=== PATIENT | male | born 1975 | race Caucasian/White ===

== ENCOUNTER 2018-03-15 21:53 | Inpatient (IN) | payer MEDICAID ==
[~2018-03-15] VITALS: Ht 167.6 cm; Wt 67.3 kg
[~2018-03-15 21:53] MED LIST: FURO40TA5 PO; LISI10TA59 PO; SPIR25TA PO
--- NOTE | 2018-03-15 22:40 | NUR ---
PT BBSELF FROM HOME C/C OF ON/OFF PRESSURE LIKE CP NON RADIATING X1 WEEK W/ +SOB, -N/V. STATES HE USES METH. SKIN WARM AND DRY. PT AAOX4. RR EVEN AND UNLABORED. PT PLACED ON NATIONAL SALES DIRECTOR AND POX. MD BEDSIDE FOR EVAL. PT SAFETY AND COMFORT MEASURES IN PLACE.
[2018-03-15] MEDS ORDERED: FUROSEMIDE 40 MG/4 ML VIAL IV ONE (23:00)
[2018-03-15] MEDS ORDERED: ENALAPRILAT INJ (1.25 MG/ML) 1.25 MG/ML VIAL IV PRN (23:00)
[2018-03-15] MEDS ORDERED: NITROGLYCERIN 0.4 MG/TAB BOTTLE SL ONE (23:00)
[2018-03-15] MEDS ORDERED: ASPIRIN 325 MG TABLET PO ONE (23:00)
[2018-03-15 23:02] LABS: BASOPHILS # (AUTO) 0.2 /CMM (0.0-0.2); BASOPHILS % (AUTO) 2.6 % (0.0-2.0); EOSINOPHILS % (AUTO) 2.4 % (0.0-6.0); HEMATOCRIT 36 % (39-51); HEMOGLOBIN 11.7 g/dL (13.5-17.5); LYMPHOCYTES # (AUTO) 2.3 /CMM (0.8-4.8); LYMPHOCYTES % (AUTO) 31.3 % (20.0-44.0); MEAN CORPUSCULAR HGB CONC 32 g/dl (31.0-36.0); MEAN CORPUSCULAR VOLUME 78 fL (80-96); MONOCYTES # (AUTO) 0.3 /CMM (0.1-1.30); MONOCYTES % (AUTO) 4.8 % (2.0-12.0); NEUTROPHILS # (AUTO) 4.3 /CMM (1.8-8.9); NEUTROPHILS % (AUTO) 58.9 % (43.0-81.0); PLATELET COUNT (AUTO) 328 /CMM (150-450); RED BLOOD CELL COUNT(AUTO) 4.62 MIL/uL (4.5-6.0); WHITE BLOOD COUNT (AUTO) 7.2 K/uL (4.3-11.0)
[2018-03-15] MEDS ORDERED: FUROSEMIDE 20 MG/2 ML VIAL ONE (23:04)
[2018-03-15] MEDS ORDERED: ENALAPRILAT DIHYD. (2.5MG/ML) 1.25 MG/ML VIAL IV ONE (23:04)
[2018-03-15] MEDS ORDERED: ASPIRIN 325 MG TABLET ONE (23:04)
[2018-03-15] MEDS ORDERED: FUROSEMIDE 40 MG/4 ML VIAL ONE (23:04)
[2018-03-15] MEDS ORDERED: NITROGLYCERIN 0.4 MG/TAB BOTTLE ONE (23:04)
[2018-03-15 23:12] LABS: CALCIUM, SERUM 8.6 mg/dL (8.5-10.1); CREATININE 1.3 mg/dL (0.6-1.3); POTASSIUM 4.1 mmol/L (3.5-5.1)
--- NOTE | 2018-03-15 23:19 | NUR ---
PT RECEIVED 3 DOSES OF SUBLINGUAL NITRO 0.4 PER MD'S ORDERS. PT STATES PAIN DOWN FROM 7/10 TO 4/10.
[2018-03-15 23:27] LABS: ALBUMIN 3.5 g/dL (3.4-5.0); BILIRUBIN,DIRECT 0.3 mg/dL (0.0-0.2); BILIRUBIN,TOTAL 1.6 mg/dL (0.2-1.0); TOTAL PROTEIN, SERUM 7.5 g/dL (6.4-8.2)
[2018-03-15 23:30] VITALS: BP 128/80
--- NOTE | 2018-03-15 23:32 | NUR ---
CALLED NURSE TARIQP FOR TELE BED. [phone]
--- NOTE | 2018-03-15 23:35 | NUR ---
TO RESTROOM TO GIVE URINE SAMPLE
--- NOTE | 2018-03-15 23:39 | NUR ---
REPORT GIVEN TO OCEANOGRAPHIC METEOROLOGISTFERN LLOYD FOR ELLYN
[2018-03-16 00:30] VITALS: BP 128/80
[2018-03-16] MEDS ORDERED: ACETAMINOPHEN 325 MG TABLET PO PRN (02:30)
[2018-03-16] MEDS ORDERED: ZOLPIDEM TARTRATE 5 MG TABLET PO PRN (02:30)
[2018-03-16] MEDS ORDERED: MAGNESIUM HYDROXIDE 30 ML UDC PO PRN (02:30)
[2018-03-16] MEDS ORDERED: Z GUARD REMEDY 2 OZ OINT TP PRN (02:30)
[2018-03-16] MEDS ORDERED: ONDANSETRON HCL/PF 4 MG/2 ML VIAL IVP PRN (02:30)
[2018-03-16] MEDS ORDERED: HYDROCODONE/APAP 5/325MG 1 EACH TABLET PO PRN (02:30)
[2018-03-16] MEDS ORDERED: MAG HYDROX/AL HYDROX/SIMETH 30 ML UDC PO PRN (02:30)
--- NOTE | 2018-03-16 06:23 | NUR ---
ENDING NOTES: NPO SINCE MIDNIGHT, UNTIL SEEN BY MD WRAY THIS AM. NO CHESTPAIN SINCE LEAVING THE ER NO SOB. SATSABOVE 96% ROOM AIR, BLOOD PRESSURE STABLE VOIDED 1700 ML SINCE MIDNIGHT AFTER BEING GIVEN LASIX IV IN THE ER. LUNGS VIA AUSCULTATION CLEAR. HE IS COOPERATIVE AND PLEASENT. SLEPT EASILY THRU THE NIGHT.
--- NOTE | 2018-03-16 07:32 | NUR ---
PT AWAKE A/O X4 , COOPERATIVE .NPO SINCE MIDNIGHT. NO CHESTPAIN REPORTED AT THIS TIME , PT ON ROOM AIR SAT ABOVE 95%. IV LINE INTACT AND PATENT. WILL CONTINUE TO MONITOR
[2018-03-16 07:47] LABS: BASOPHILS # (AUTO) 0.1 /CMM (0.0-0.2); BASOPHILS % (AUTO) 0.9 % (0.0-2.0); EOSINOPHILS % (AUTO) 3.6 % (0.0-6.0); HEMATOCRIT 38 % (39-51); HEMOGLOBIN 12.4 g/dL (13.5-17.5); LYMPHOCYTES # (AUTO) 1.8 /CMM (0.8-4.8); LYMPHOCYTES % (AUTO) 23.9 % (20.0-44.0); MEAN CORPUSCULAR HGB CONC 32 g/dl (31.0-36.0); MEAN CORPUSCULAR VOLUME 77 fL (80-96); MONOCYTES # (AUTO) 0.4 /CMM (0.1-1.30); MONOCYTES % (AUTO) 5.3 % (2.0-12.0); NEUTROPHILS % (AUTO) 66.3 % (43.0-81.0); PLATELET COUNT (AUTO) 353 /CMM (150-450); RED BLOOD CELL COUNT(AUTO) 4.98 MIL/uL (4.5-6.0); WHITE BLOOD COUNT (AUTO) 7.5 K/uL (4.3-11.0)
[2018-03-16 08:00] VITALS: BP 136/86
[2018-03-16 08:01] LABS: CREATININE 1.4 mg/dL (0.6-1.3); PHOSPHORUS 4.4 mg/dL (2.5-4.9); POTASSIUM 4.2 mmol/L (3.5-5.1)
[2018-03-16] MEDS ORDERED: SPIRONOLACTONE 25 MG TABLET PO SCH (09:00)
[2018-03-16] MEDS ORDERED: FUROSEMIDE 40 MG TABLET PO SCH (09:00)
[2018-03-16] MEDS ORDERED: LISINOPRIL (10MG) 10 MG TABLET PO SCH (09:00)
[2018-03-16 09:06] VITALS: BP 136/86
--- NOTE | 2018-03-16 10:20 | NUR ---
Social service consult requested by manager of case Flor Patrica for homelessness. Pt. is a 42 year old male who was admitted to [facility] for NSTEMI. SW met with pt. bedside. Pt. is alert and oriented x 4. Pt. was cooperative with SW during the assessment. SW is familiar with pt. from a previous admission in December 2017. Pt. states he is not homeless and lives with a friend. Pt. was unable to provide address but stated his friend with pick him up or he will take Uber and request the address from his friend. Pt. states he has not used any drugs since his last admission on 12/20/17. Pt.denies any alcohol use at this time. Pt. states he has a lot of anxiety but is not taking any medication for it. ROXY encouraged pt. to speak to his doctor regarding his anxiety. ROXY also informed pt. she will notify his FERN Hernandez as well. Pt. is currently NPO. Pt. has family who are involved in his life. No other social service needs are requested at this time. SW is available, if needed. ROXY notified pt's FERN Hernandez regarding pt's anxiety.
[2018-03-16] MEDS ORDERED: ASPIRIN 81 MG TAB.CHEW PO SCH (10:30)
[2018-03-16] MEDS ORDERED: LEVALBUTEROL HCL NEB 1.25 MG/0.5 ML VIAL.NEB IH SCH (10:30)
[2018-03-16] MEDS ORDERED: ASPI-1152 PO (13:23)
--- NOTE | 2018-03-16 13:25 | NUR ---
PT CLEARED FOR D/C BY . PT D/C TO HOME IN STABLE CONDITION. IV LINE REMOVED, ID WRIST BAND REMOVED, D/C EDUCATION AND INSTRUCTIONS PROVIDED. PT VERBALIZED UNDERSTANDING. NO SKIN ISSUES. ALL BELONGINGS WITH THE PATIENT AND LIST IS SIGHED.
== END 2018-03-16 13:20 | disposition home or self-care (01) | DRG 194 ==
LOC: ER 21:56 → TELE 23:32 → MED 03-16 10:47
PROVIDERS: ADMIT Nurse Practitioner Acute Care
DX: I11.0 Hypertensive heart disease with heart failure (principal); I21.A1 Myocardial infarction type 2; N17.0 Acute kidney failure with tubular necrosis; I42.7 Cardiomyopathy due to drug and external agent; I50.21 Acute systolic (congestive) heart failure; I25.2 Old myocardial infarction; D63.8 Anemia in other chronic diseases classified elsewhere; F17.210 Nicotine dependence, cigarettes, uncomplicated; J44.9 Chronic obstructive pulmonary disease, unspecified; E78.5 Hyperlipidemia, unspecified; R74.0 Nonspecific elevation of levels of transaminase and lactic acid dehydrogenase [LDH]; F40.240 Claustrophobia; F15.988 Other stimulant use, unspecified with other stimulant-induced disorder
CPT/HCPCS: 36415; 71045-TC; 80048-TC; 80076-TC; 83690-TC; 83735-TC; 83880; 84100-TC; 84484-TC; 85025-TC; 87081-TC; G0378; J1940; J3490

== ENCOUNTER 2018-03-27 19:07 | Inpatient (IN) | payer MEDICAID ==
[2018-03-27] VITALS (7 sets, daily range): BP systolic 136–166; BP diastolic 87–109
[~2018-03-27] VITALS: Ht 172.7 cm; Wt 69.4 kg
[~2018-03-27 19:07] MED LIST changes: +ASPI-1152 PO
[2018-03-27] MEDS ORDERED: Magnesium 1GM/D5W 100ML PREMIX 200 ML IV ONE (19:31)
--- NOTE | 2018-03-27 19:31 | NUR ---
BIBSELF C/O SOB X 2 DAYS, PATIENT STATES HE FEELS A LOT OF PRESSURE WHEN LAYING DOWN. HX OF CHF. PT NOTED TO BE TACHYPNIC, WITH DYSPNEA ON INSPIRATION. RR 26-30. STATES +CP. PT IS AAOX4. PT PLACED ON APPEALS SPECIALIST AND POX. BEDSIDE FOR EVAL. RT PAGED. WILL CONTINUE TO MONITOR PT SAFETY AND COMFORT.
[2018-03-27] MEDS ORDERED: Magnesium 1GM/D5W 100ML PREMIX 100 ML IV ONE (19:38)
[2018-03-27] MEDS ORDERED: methylPREDNISolone SOD SUCC 125 MG/2ML VIAL ONE (19:38)
[2018-03-27] MEDS ORDERED: NTG 50 MG/D5W250 ML BOTTL 250 ML IV ONE (19:44)
[2018-03-27 19:48] LABS: BASOPHILS # (AUTO) 0.1 /CMM (0.0-0.2); BASOPHILS % (AUTO) 1.4 % (0.0-2.0); HEMATOCRIT 36 % (39-51); HEMOGLOBIN 11.6 g/dL (13.5-17.5); LYMPHOCYTES # (AUTO) 1.5 /CMM (0.8-4.8); MEAN CORPUSCULAR HGB CONC 32 g/dl (31.0-36.0); MEAN CORPUSCULAR VOLUME 78 fL (80-96); MONOCYTES # (AUTO) 0.4 /CMM (0.1-1.30); MONOCYTES % (AUTO) 5.4 % (2.0-12.0); NEUTROPHILS # (AUTO) 5.8 /CMM (1.8-8.9); NEUTROPHILS % (AUTO) 73.2 % (43.0-81.0); PLATELET COUNT (AUTO) 336 /CMM (150-450); RED BLOOD CELL COUNT(AUTO) 4.59 MIL/uL (4.5-6.0)
[2018-03-27 19:51] LABS: ABG BASE EXCESS -1.1 mmol/L; ABG OXYGEN SATURATION 95.5 % (92.0-98.5); ABG PCO2 28.2 mmHg (35.0-45.0); ABG PH 7.493 (7.350-7.450); ABG PO2 82.4 mmHg (75.0-100.0); AaDO2 33.6 mmHg; COHb 1.6 % (0.5-1.5); MetHb 0.3 % (0.0-1.5); O2Hb 93.7 % (94.0-97.0); SITE, ABG Right Radial; VENT MODE, BG ROOM AIR
[2018-03-27 19:55] LABS: CALCIUM, SERUM 8.5 mg/dL (8.5-10.1); CREATININE 1.3 mg/dL (0.6-1.3); POTASSIUM 4.5 mmol/L (3.5-5.1)
--- NOTE | 2018-03-27 19:56 | NUR ---
RT BEDSIDE FOR ABD AND PLACING PT ON BIPAP
[2018-03-27] MEDS ORDERED: IPRATROPIUM NEB FS 0.5 MG/2.5 ML AMPUL.NEB ONE (19:57)
[2018-03-27] MEDS ORDERED: ALBUTEROL FS 2.5 MG/3 ML VIAL.NEB ONE (19:57)
[2018-03-27] MEDS ORDERED: NTG 50 MG/D5W250 ML BOTTL 50 MG/250 ML BTL IV ONE (20:00)
[2018-03-27] MEDS ORDERED: ALBUTEROL FS 2.5 MG/3 ML VIAL.NEB CONTNEB ONE (20:00)
[2018-03-27] MEDS ORDERED: methylPREDNISolone SOD SUCC 125 MG/2ML VIAL IV ONE (20:00)
[2018-03-27] MEDS ORDERED: IPRATROPIUM NEB FS 0.5 MG/2.5 ML AMPUL.NEB NEB ONE (20:00)
[2018-03-27 20:07] LABS: ALBUMIN 3.2 g/dL (3.4-5.0); BILIRUBIN,DIRECT 0.5 mg/dL (0.0-0.2); BILIRUBIN,TOTAL 2.5 mg/dL (0.2-1.0); TOTAL PROTEIN, SERUM 7.1 g/dL (6.4-8.2)
--- NOTE | 2018-03-27 21:07 | NUR ---
REPORT GIVEN TO PAUL SHIRLEY FOR CONTINUATION OF CARE.
[2018-03-27] MEDS ORDERED: MAGNESIUM HYDROXIDE 30 ML UDC PO PRN (21:30)
[2018-03-27] MEDS ORDERED: ONDANSETRON HCL/PF 4 MG/2 ML VIAL IVP PRN (21:30)
[2018-03-27] MEDS ORDERED: MAG HYDROX/AL HYDROX/SIMETH 30 ML UDC PO PRN (21:30)
[2018-03-27] MEDS ORDERED: HYDROCODONE/APAP 5/325MG 1 EACH TABLET PO PRN (21:30)
[2018-03-27] MEDS ORDERED: MORPHINE SULFATE INJ 2 MG/ML DISP.SYRIN IV PRN (21:30)
[2018-03-27] MEDS ORDERED: NTG 50 MG/D5W250 ML BOTTL 250 ML IV PRN (21:30)
[2018-03-27] MEDS ORDERED: ACETAMINOPHEN 325 MG TABLET PO PRN (21:30)
[2018-03-27] MEDS ORDERED: ALBUTEROL FS 2.5 MG/0.5 ML VIAL.NEB NEB PRN (21:30)
[2018-03-27] MEDS ORDERED: ZOLPIDEM TARTRATE 5 MG TABLET PO PRN (21:30)
[2018-03-27] MEDS ORDERED: IPRATROPIUM NEB FS 0.5 MG/2.5 ML AMPUL.NEB NEB PRN (21:30)
[2018-03-27] MEDS ORDERED: IOHEXOL-350 100 ML VIAL IV ONE (21:37)
[2018-03-27] MEDS ORDERED: IV NS 0.9% 250 ML IV ONE (21:38)
[2018-03-27] MEDS ORDERED: CT SWABBABLE VALVE TRANS SET 1 EA INFUS.SET MC ONE (21:38)
[2018-03-27] MEDS: FUROSEMIDE 40 MG/4 ML VIAL IV SCH (22:10)
[2018-03-27] MEDS: ENOXAPARIN SODIUM 40 MG/0.4 ML DISP.SYRIN SQ SCH (22:20)
--- NOTE | 2018-03-27 22:22 | NUR ---
CASSEROLE PREPARER. ADMISSION. PT BEING ADMITTED FROM ER TO ICU RESPIRATORY FAILURE, CHF EXACERBATION. PT AWAKE, ALERT, FOLLOW COMMANDS. ASSISTANT GROCERY STORE MANAGER SHOWING S TACH. IV LTA C 20G. NITRO DRIP 80MCG, HOB ELEVATED. C PAP 5, FIO2 30%. AFEBRILE. WILL CONTINUE TO MONITOR VITALS.
[2018-03-27] MEDS ORDERED: Magnesium 1GM/D5W 100ML PREMIX 100 ML IV SCH (22:30)
[2018-03-28] VITALS (39 sets, daily range): BP systolic 109–162; BP diastolic 68–112
--- NOTE | 2018-03-28 03:34 | NUR ---
AIR BAG CURER. C PAP PT REFUSED. AT 0
[2018-03-28 04:35] LABS: APPEARANCE,URINE CLEAR (CLEAR); BILIRUBIN,URINE NEGATIVE (NEGATIVE); BLOOD, URINE NEGATIVE Ery/uL (NEGATIVE); COLOR,URINE YELLOW (YELLOW); KETONES,URINE NEGATIVE (NEGATIVE); LEUKOCYTE ESTERASE ,URINE NEGATIVE (NEGATIVE); NITRITE, URINE NEGATIVE (NEGATIVE); PROTEIN,URINE NEGATIVE (NEGATIVE); UGLUCOSE NEGATIVE (NEGATIVE); UROBILINOGEN,URINE 0.2 EU/dL (0.2)
--- NOTE | 2018-03-28 04:35 | NUR ---
BURLAPPER. PT REFUSED 0400 LAB BLOOD DRAW. I EXPLAIN NEED OF BLOOD DRAW HE UNDERSTAND. PT AGREED AT 0800.
--- NOTE | 2018-03-28 07:11 | NUR ---
INFORMATICS DEVELOPER. PT REFUSED CPAP. OXYGEN MASK 5L , SAT 98%.
[2018-03-28 07:19] LABS: BASOPHILS % (AUTO) 0.2 % (0.0-2.0); HEMATOCRIT 36 % (39-51); HEMOGLOBIN 11.4 g/dL (13.5-17.5); LYMPHOCYTES # (AUTO) 0.6 /CMM (0.8-4.8); LYMPHOCYTES % (AUTO) 7.5 % (20.0-44.0); MEAN CORPUSCULAR HGB CONC 32 g/dl (31.0-36.0); MEAN CORPUSCULAR VOLUME 77 fL (80-96); MONOCYTES # (AUTO) 0.2 /CMM (0.1-1.30); MONOCYTES % (AUTO) 2.5 % (2.0-12.0); NEUTROPHILS # (AUTO) 7.2 /CMM (1.8-8.9); NEUTROPHILS % (AUTO) 89.8 % (43.0-81.0); PLATELET COUNT (AUTO) 330 /CMM (150-450); RED BLOOD CELL COUNT(AUTO) 4.62 MIL/uL (4.5-6.0); WHITE BLOOD COUNT (AUTO) 8.1 K/uL (4.3-11.0)
[2018-03-28 07:39] LABS: ALBUMIN 3.3 g/dL (3.4-5.0); BILIRUBIN,TOTAL 2.8 mg/dL (0.2-1.0); CALCIUM, SERUM 8.6 mg/dL (8.5-10.1); CREATININE 1.2 mg/dL (0.6-1.3); MAGNESIUM 2.3 mg/dL (1.8-2.4); PHOSPHORUS 4.3 mg/dL (2.5-4.9); POTASSIUM 4.1 mmol/L (3.5-5.1); TOTAL PROTEIN, SERUM 7.3 g/dL (6.4-8.2)
[2018-03-28] MEDS: PANTOPRAZOLE 40 MG VIAL IV SCH (07:55)
--- NOTE | 2018-03-28 08:00 | NUR ---
VOLLEYBALL PLAYER: pt.is awake, Ox2, ST 100-110, on Nitro gtt, SBP 140-150, continue titrate, refused for CPAP, on SM 6L, O2sat. over 94%, is in room, updated with all above
--- NOTE | 2018-03-28 08:28 | NUR ---
CPC: pt.removed BP cuffx2, got explanation re POC, monitoring need d/t Nitro gtt
--- NOTE | 2018-03-28 08:50 | NUR ---
RUBBER TIRE CURER: pt.refused to draw blood for labs, ABG
[2018-03-28] MEDS: methylPREDNISolone SOD SUCC 40 MG/ML VIAL IV SCH ×3 (08:55→17:22)
[2018-03-28] MEDS: FUROSEMIDE 40 MG/4 ML VIAL IV SCH ×2 (08:55→17:22)
[2018-03-28] MEDS: ASPIRIN 81 MG TAB.CHEW PO SCH (08:55)
[2018-03-28] MEDS: LISINOPRIL (10MG) 10 MG TABLET PO SCH (08:55)
[2018-03-28] MEDS ORDERED: ASPIRIN 325 MG TABLET PO SCH (09:00)
--- NOTE | 2018-03-28 09:20 | NUR ---
DENTAL EQUIPMENT INSTALLER AND SERVICER: pt.is more cooperative now, got Miriam d/t headache (08/26), ST 100-105, SBP is around 130-140 now, ordered: stop Nitro gtt, start Nitro patch, O2sat. over 95%, no SOB, no acute c/o now, pt.is asking food/will s/w , urinated x2, notified re: don't leave bed without help
--- NOTE | 2018-03-28 10:15 | NUR ---
TOUR GUIDE: notified pt. re I/O restriction, O2sat. 98-100%, placed pt. on n/c 4L, is in room, got report: pt.current condition, CPAP/ABG refuses, Nitro gtt off, VS, I/O, labs, troponin, history, see new orders
[2018-03-28] MEDS: NITROGLYCERIN 30 GM TUBE TP SCH ×2 (10:28→20:58)
--- NOTE | 2018-03-28 11:14 | NUR ---
MORTGAGE SERVICING SPECIALIST: is in room, updated with all above, said: start cardiac diet, ok to transfer to Tele
--- NOTE | 2018-03-28 11:56 | NUR ---
PT REFUSED ABG, BENEFITS AND CONTRAINDICATIONS EXPLAINED. FERN NAVA. WILL CONT TO MONITOR PT Addendum: 03/28/18 at 1157 by HUGO MEADE RT Amended: Links added.
[2018-03-28] MEDS ORDERED: HYDROMORPHONE INJ 0.5 MG/0.5 ML SYRINGE IV PRN (12:30)
--- NOTE | 2018-03-28 14:44 | NUR ---
TURF FARMER: pt.is rest, no any pain now, sleeps well, ST 100-106, SBP over 100 below 140, O2sat. over 97% on 2L n/c, RR WNL
--- NOTE | 2018-03-28 16:00 | NUR ---
PRODUCTION CONTROL ANALYST: pt.is transferred to Tele after full report for FERN Tipton
--- NOTE | 2018-03-28 16:00 | NUR ---
DRIED FRUIT WASHER OPENING NOTES RECEIVED PATIENT IN STABLE CONDITION. IN NO APPARENT DISTRESS. PLACED PATIENT ON ELECTRICAL ASSISTANT. BELONGINGS WERE CHECKED. CALL LIGHT IS WITHIN REACH. IV LINE IS INTACT AND PATENT. BEDSIDE RAILS ARE UPX2. BED IS LOCKED AND LOWERED. WILL CONTINUE TO MONITOR PATIENT.
--- NOTE | 2018-03-28 18:23 | NUR ---
SOYBEAN GROWER CLOSING NOTES PATIENT RESTING IN STABLE CONDITION. IN NO APPARENT DISTRESS. BEDSIDE RAILS ARE UPX2. BED IS LOCKED AND LOWERED. CALL LIGHT IS WITHIN REACH. IV LINE IS INTACT AND PATENT. WILL ENDORSE CARE TO NIGHT [facility] NURSE FOR ELLYN.
--- NOTE | 2018-03-28 19:30 | NUR ---
DIESEL ENGINE MECHANIC APPRENTICE NOTES RECEIVED ON BED A/O X4,SINHALA,ABLE TO SPEAK CROATIAN.WITH SALINE LOCK RIGHT AC INTACT AND PATENT.NO SOB,O2 IN USED ON AND OFF TO KEEP O2 SAT ABOVE 90%.CALL LIGHT IN REACH,NEEDS ANTICIPATED.
--- NOTE | 2018-03-28 19:45 | NUR ---
VOCATIONAL REHABILITATION ADMINISTRATOR NOTES SR WITH INVERTED T WAVE-107 ON TELE MONITOR.
--- NOTE | 2018-03-28 20:15 | NUR ---
COMPUTER SOFTWARE ENGINEER NOTES C/O INSOMNIA,AMBIEN 5MG PO GIVEN PER PATIENT REQUEST.
[2018-03-28] MEDS: ENOXAPARIN SODIUM 40 MG/0.4 ML DISP.SYRIN SQ SCH (20:58)
[2018-03-29] VITALS: BP 112/64
[2018-03-29 00:04] VITALS: BP 112/64
[2018-03-29 04:00] VITALS: BP_SYST 105; BP_SYST 127; BP_DIAS 69; BP_DIAS 87
--- NOTE | 2018-03-29 06:02 | NUR ---
DICE DEALER NOTES NO SIGNIFICANT CHANGE IN STATUS.NO SOB,SLEPT WELL WITH AMBIEN,SALINE LOCK REMAINS PATENT ON RIGHT AC.CALL LIGHT IN REACH,NEEDS ATTENDED.WILL ENDORSE TO DAY NURSE FOR ELLYN.
[2018-03-29 08:00] VITALS: BP 112/79
[2018-03-29] MEDS: PANTOPRAZOLE 40 MG VIAL IV SCH (08:24)
[2018-03-29] MEDS: FUROSEMIDE 40 MG/4 ML VIAL IV SCH (08:24)
[2018-03-29] MEDS: methylPREDNISolone SOD SUCC 40 MG/ML VIAL IV SCH (08:24)
[2018-03-29] MEDS: ASPIRIN 81 MG TAB.CHEW PO SCH (08:25)
[2018-03-29] MEDS: LISINOPRIL (10MG) 10 MG TABLET PO SCH (08:25)
[2018-03-29] MEDS: NITROGLYCERIN 30 GM TUBE TP SCH ×2 (08:26→08:37)
[2018-03-29 08:37] VITALS: BP 112/79
--- NOTE | 2018-03-29 08:38 | NUR ---
RN NOTE PT REFUSED NITRO OINTMENT THIS AM STATING "IT GIVES ME TERRIBLE HEADACHE". WILL NOTIFY .
[2018-03-29] MEDS ORDERED: POTASSIUM CHLORIDE 20 MEQ TAB.PRT.SR PO SCH (09:00)
[2018-03-29] MEDS ORDERED: FUROSEMIDE 40 MG TABLET PO SCH (09:00)
--- NOTE | 2018-03-29 09:35 | NUR ---
RN NOTE PT IS AGITATED, PULLED OUT HIS IV SITE AND SUPERVISOR OF WAY, DRESSED UP IN HIS CLOTHES AND PACING IN THE CAPUTO WAY. WANTS TO LEAVE THE HOSPITAL. SIGNED AMA PAPER AND LEFT. NOTIFIED. Addendum: 03/29/18 at 1009 by LEONEL BAEZA RN RISK EXPLAINED, AND ACKNOWLEDGED, PT STILL WANTS TO GO HOME. PT REFUSED FURTHER TEACHINGS.
== END 2018-03-29 09:30 | disposition left against medical advice (07) | DRG 190 ==
LOC: ER 19:08 → ICU 20:59 → TELE 03-28 16:00 → MED 03-29 09:27
PROVIDERS: ADMIT Nurse Practitioner Acute Care
PROC: 5A09357 Assistance with Respiratory Ventilation, Less than 24 Consecutive Hours, Continuous Positive Airway Pressure (ICD-10-PCS; principal; 2018-03-27)
DX: I21.4 Non-ST elevation (NSTEMI) myocardial infarction (principal); J96.01 Acute respiratory failure with hypoxia; J96.02 Acute respiratory failure with hypercapnia; I50.23 Acute on chronic systolic (congestive) heart failure; E46 Unspecified protein-calorie malnutrition; I42.0 Dilated cardiomyopathy; E88.09 Other disorders of plasma-protein metabolism, not elsewhere classified; I11.0 Hypertensive heart disease with heart failure; N17.0 Acute kidney failure with tubular necrosis; D50.9 Iron deficiency anemia, unspecified; F17.210 Nicotine dependence, cigarettes, uncomplicated; E78.5 Hyperlipidemia, unspecified; D63.8 Anemia in other chronic diseases classified elsewhere; I16.1 Hypertensive emergency; F41.9 Anxiety disorder, unspecified; I25.2 Old myocardial infarction; F40.240 Claustrophobia; Z68.23 Body mass index [BMI] 23.0-23.9, adult; Z91.19 Patient's noncompliance with other medical treatment and regimen; E80.6 Other disorders of bilirubin metabolism; F15.10 Other stimulant abuse, uncomplicated; J44.9 Chronic obstructive pulmonary disease, unspecified
CPT/HCPCS: 36415; 36600; 71045-TC; 80048-TC; 80053-TC; 80061-TC; 80076-TC; 80305; 81000-TC; 82803-TC; 83735-TC; 83880; 84100-TC; 84484-TC; 85025-TC; 85378-TC; 87081-TC; 87400; 93307-TC; 94799-TC; C9113; G0378; J1650; J1940; J2920; J2930; J3475; J3490; J7050; Q9967

== ENCOUNTER 2018-04-05 | Inpatient (IN) | payer MEDICAID ==
[~2018-04-05] VITALS: Ht 170.2 cm; Wt 69.4 kg
[2018-04-05 00:29] LABS: BASOPHILS # (AUTO) 0.1 /CMM (0.0-0.2); BASOPHILS % (AUTO) 1.4 % (0.0-2.0); EOSINOPHILS % (AUTO) 2.4 % (0.0-6.0); HEMATOCRIT 34 % (39-51); LYMPHOCYTES # (AUTO) 1.8 /CMM (0.8-4.8); LYMPHOCYTES % (AUTO) 21.3 % (20.0-44.0); MEAN CORPUSCULAR HGB CONC 32 g/dl (31.0-36.0); MEAN CORPUSCULAR VOLUME 78 fL (80-96); MONOCYTES # (AUTO) 0.7 /CMM (0.1-1.30); MONOCYTES % (AUTO) 8.1 % (2.0-12.0); NEUTROPHILS # (AUTO) 5.6 /CMM (1.8-8.9); NEUTROPHILS % (AUTO) 66.8 % (43.0-81.0); PLATELET COUNT (AUTO) 389 /CMM (150-450); RED BLOOD CELL COUNT(AUTO) 4.42 MIL/uL (4.5-6.0); WHITE BLOOD COUNT (AUTO) 8.4 K/uL (4.3-11.0)
--- NOTE | 2018-04-05 00:29 | NUR ---
PT AOX4. C/O "SOB, H/A, FEELS LIKE ELEPHANT ON MY CHEST",-CP, -N/V, -DIZZINESS, VS STABLE, 100% R/A, FEELS LIKE HEAD ABOUT TO EXPLODE, PLACED ON ER BED 3 SEEN AND EVAL DONE DR GALAN, AWAITING ORDERS.
--- NOTE | 2018-04-05 00:30 | NUR ---
RT CALLED FOR NEB TX.
[2018-04-05] MEDS ORDERED: ALBUTEROL FS 2.5 MG/3 ML VIAL.NEB ONE (00:37)
[2018-04-05 00:40] LABS: CALCIUM, SERUM 8.6 mg/dL (8.5-10.1); CREATININE 1.2 mg/dL (0.6-1.3); POTASSIUM 5.1 mmol/L (3.5-5.1)
[2018-04-05] MEDS ORDERED: methylPREDNISolone SOD SUCC 125 MG/2ML VIAL IV ONE (01:00)
[2018-04-05] MEDS ORDERED: IPRATROPIUM NEB FS 0.5 MG/2.5 ML AMPUL.NEB NEB ONE (01:00)
[2018-04-05] MEDS ORDERED: ALBUTEROL FS 2.5 MG/3 ML VIAL.NEB CONTNEB ONE (01:00)
[2018-04-05] MEDS ORDERED: ASPIRIN 325 MG TABLET ONE (01:21)
[2018-04-05] MEDS ORDERED: methylPREDNISolone SOD SUCC 125 MG/2ML VIAL ONE (01:21)
--- NOTE | 2018-04-05 01:22 | NUR ---
ROOM [id number]
[2018-04-05] MEDS ORDERED: ASPIRIN 325 MG TABLET PO ONE (01:30)
[2018-04-05] MEDS ORDERED: Magnesium 1GM/D5W 100ML PREMIX 100 ML IV ONE (02:00)
[2018-04-05] MEDS ORDERED: Z GUARD REMEDY 2 OZ OINT TP PRN (02:00)
[2018-04-05] MEDS ORDERED: MAG HYDROX/AL HYDROX/SIMETH 30 ML UDC PO PRN (02:00)
[2018-04-05] MEDS ORDERED: MAGNESIUM HYDROXIDE 30 ML UDC PO PRN (02:00)
[2018-04-05] MEDS ORDERED: ZOLPIDEM TARTRATE 5 MG TABLET PO PRN (02:00)
[2018-04-05] MEDS ORDERED: IPRATROPIUM NEB FS 0.5 MG/2.5 ML AMPUL.NEB NEB PRN (02:00)
[2018-04-05] MEDS ORDERED: ALBUTEROL FS 2.5 MG/3 ML VIAL.NEB NEB PRN (02:00)
[2018-04-05] MEDS ORDERED: ACETAMINOPHEN 325 MG TABLET PO PRN (02:00)
[2018-04-05] MEDS ORDERED: HYDROCODONE/APAP 5/325MG 1 EACH TABLET PO PRN (02:00)
[2018-04-05] MEDS ORDERED: ONDANSETRON HCL/PF 4 MG/2 ML VIAL IVP PRN (02:00)
--- NOTE | 2018-04-05 02:16 | NUR ---
REPORT GIVEN TO HITESH SHIRLEY.
[2018-04-05 02:25] VITALS: BP 128/92
--- NOTE | 2018-04-05 02:25 | NUR ---
CLIPPER MACHINE OPERATOR ADMITTING OPENING NOTES RECEIVED PATIENT FROM ER VIA GURNEY SAFELY TRANSFERRED TO BED, AMBULATORY WITH STANDBY ASSIST SAFELY TRANSFERRED TO BED, PLACED ON FINANCIAL SERVICE REP SR [phone], PLACED ON 2 L VIA NC 100% SPO2, DENIES ANY SOB AT THIS TIME, STATES HE FEELS PRESSURE TO CHEST LIKE AN ELEPHANT IS SITTING ON THERE. AWAKE ALERT AND ORIENTED X 4, ABLE TO MAKE NEEDS KNOWN, IV SITE TO LEFT AC #18 G INTACT AND PATENT, NO REDNESS, NO INFILTRATION PRESENT, BELONGINGS LIST DONE, PER PATIENT FRIEND TOOK SHIRT HOME, REGARDING BODY ASSESSMENT PER PATIENT STATES "I DONT HAVE ANY WOUNDS, OR I WOULD TELL YOU" ATTEMPTED TO ASSESS SKIN HEELS AND SACRAL INTACT PER PATIENT DOES NOT HAVE ANY RASH TO GROIN. UPPER BODY NOTED SKIN INTACT. WILL FOLLOW MD ORDERS. ALL NEEDS ATTENDED AT THIS TIME,ORIENTED TO STAFF AND CALL LIGHT AND KEPT WITHIN REACH, SAFETY PRECAUTIONS IN PLACE, LOW BED AND LOCKED, BED ALARM IN PLACE WILL CONTINUE TO MONITOR.
--- NOTE | 2018-04-05 02:28 | NUR ---
TRANSFERRED PT TO MS3/TELE VIA ACLS PROTOCOL
[2018-04-05 02:30] VITALS: BP 128/92
[2018-04-05] MEDS: NITROGLYCERIN PACKET 1 GM PACKET TOP SCH ×2 (03:21→14:00)
[2018-04-05] MEDS: ENOXAPARIN SODIUM 40 MG/0.4 ML DISP.SYRIN SQ SCH ×2 (03:23→21:20)
[2018-04-05 04:00] VITALS: BP 130/94
--- NOTE | 2018-04-05 04:33 | NUR ---
PAINT PREP TECHNICIAN NOTES PATIENT INSISTING THAT HE WANTS LEFT AC #18 REMOVED STATES ITS UNCOMFORTABLE ON THAT SITE NEW IV SITE TO RIGHT FA #22 G STARTED WITH GOOD BACKFLOW, LEFT AC REMOVED.
--- NOTE | 2018-04-05 05:51 | NUR ---
HOUSEKEEPING MANAGER NOTES PATIENT REFUSED ABG DRAW AT THIS STATES " do it later" explained benefit refused x3
--- NOTE | 2018-04-05 06:24 | NUR ---
TOUR AGENT CLOSING NOTES PATIENT REMAINS IN BED SLEEPING BUT EASILY AROUSABLE, RESPIRATIONS EVEN AND UNLABORED WITH EQUAL RISE AND FALL OF CHEST, PATENT DOES NOT WANT 02 ON AT THIS TIME, STATES "I DONT NEED IT". DENIES ANY CHEST PAIN AT THIS TIME, ALL NEEDS ATTENDED, IV SITE REMAINS CLEAN DRY AND INTACT AND PATENT, SAFETY PRECAUTIONS IN PLACE, CALL LIGHT KEPT WITHIN REACH ALL NEEDS ATTENDED AT THIS TIME WILL CONTINUE TO MONITOR AND ENDORSE TO NEXT SHIFT.
[2018-04-05 08:00] VITALS: BP 126/79
[2018-04-05] MEDS: ASPIRIN EC 81 MG TABLET.DR PO SCH (09:09)
[2018-04-05] MEDS: FUROSEMIDE 40 MG TABLET PO SCH (09:09)
[2018-04-05] MEDS: SPIRONOLACTONE 25 MG TABLET PO SCH (09:09)
[2018-04-05] MEDS: LISINOPRIL (10MG) 10 MG TABLET PO SCH (09:09)
[2018-04-05] MEDS: PANTOPRAZOLE 40 MG VIAL IV SCH (09:12)
[2018-04-05] MEDS: methylPREDNISolone SOD SUCC 40 MG/ML VIAL IV SCH ×3 (09:19→17:45)
[2018-04-05] MEDS ORDERED: IV NS 0.9% 1,000 ML BAG IV PRN (10:30)
[2018-04-05] MEDS: IV NS 0.9% 1,000 ML IV PRN (12:40)
[2018-04-05 20:00] VITALS: BP 125/93
--- NOTE | 2018-04-05 20:38 | NUR ---
RN CLOSING NOTES PT. IS IN BED A&OX4. BREATHING UNLABORED ON ROOM AIR. NO S/S OF ACUTE DISTRESS. IV ACCESS IS INTACT AND PATENT WITH SALINE FLUSH. BED IS IN LOWEST, AND LOCKED POSITION. 2 SIDE RAILS UP, AND INSTRUCTED PT. TO USE CALL LIGHT FOR ASSISTANCE. ENDORSED REPORT TO NURSE.
--- NOTE | 2018-04-05 20:40 | NUR ---
RN INITIAL NOTES: RECEIVED REPORT FROM COLIN SHIRLEY, PT TRANSFERRED TO MS 2, ALL BELONGINGS BROUGHT WITH THE PT UPON TRANSFER. PT IS A/O X3 ON RA, ON AND OFF OXYGEN, DENIES ANY PAIN OR DISCOMFORT AT THIS TIME, BUT ASKING / REQUESTING FOR HIS AMBIEN, HE STATED HE JUST WANTED TO GET A GOOD NIGHT SLEEP FOR TONIGHT. SAFETY PRECAUTIONS FOR FALL INITIATED CALL LIGHT IN REACH WILL CONTINUE MONITORING PT
[2018-04-05 21:00] VITALS: BP 125/93
--- NOTE | 2018-04-05 21:14 | NUR ---
PRN AMBIEN: PT REQUESTED FOR SLEEPING PILL, PRN AMBIEN ADMINISTERED ORDERED
--- NOTE | 2018-04-05 22:15 | NUR ---
RN NOTES: SEEN PT SLEEPING COMFORTABLY IN BED, ON OXYGEN, RESPIRATION EVEN AND UNLABORED
[2018-04-06] MEDS: NITROGLYCERIN PACKET 1 GM PACKET TOP SCH (02:00)
--- NOTE | 2018-04-06 02:08 | NUR ---
REFUSAL FOR VS AND NITRO: PT REFUSED NITROGLYCERIN PATCH STATING HE ALWAYS [place] HEAD ACHE DUE TO THE SAID MEDICATION, ALSO REFUSED FOR VS TO BE CHECK, EDUCATION PROVIDED TO THE PT, PT A/O X3
[2018-04-06] MEDS: IV NS 0.9% 1,000 ML IV PRN (02:29)
--- NOTE | 2018-04-06 06:17 | NUR ---
refusal for blood draw: pt refused morning blood draw, education provided to the pt. pt still refused
--- NOTE | 2018-04-06 07:23 | NUR ---
RN CLOSING NOTES: PT REMAINS ON RA, ALWAYS DISCONNECT HIMSELF FROM IVF, NUMEROUS TIMES MADE AWARE OF IMPORTANCE OF HYDRATION. IV ACCESS REMAINS PATENT AND FLUSHING WELL, ON HL. VS REMAINS STABLE, NEEDS ATTENDED. POSSIBLE DC HOME TODAY. SAFETY PRECAUTIONS FOR FALL REMAINS ENGAGED, CALL LIGHT IN REACH, WILL ENDORSE TO DAY RN FOR ELLYN.
--- NOTE | 2018-04-06 07:50 | NUR ---
MS RN NOTES PATIENT RECEIVED RESTING INSIDE ROOM, AWAKE, ALERT AND ORIENTED X 4, VERBALLY RESPONSIVE AND RESPONDS TO VERBAL AND TACTILE STIMULI. NO ACUTE DISTRESS AT THIS TIME. DENIES ANY PAIN OR DISCOMFORT. PATIENT REPORTS NOT BEING ABLE TO LIE DOWN FLAT, VERBALIZES THAT ITS BEEN GOING FOR A LONG TIME NOW AND HE'S USED TO SLEEPING ON THE COUCH. EDUCATION PROVIDED REGARDING HOB ELEVATION AT HOME AND TECHNIQUES TO MAINTAIN HEAD ELEVATION WITH HOME EQUIPMENT (PILLOWS, POSITIONING) AND PATIENT VERBALIZED UNDERSTANDING. RECEIVED ENDORSEMENT FROM PREVIOUS SHIFT THAT PATIENT REFUSES IVF AND LAB/BLOOD DRAW. RISKS AND BENEFITS EXPLAINED BUT TO NO AVAIL, PATIENT STILL REFUSES TO HAVE HIS BLOOD DRAWN AND SAYS HE DOESNT NEED IVF. MD AWARE. WILL CONTINUE TO MONITOR. BED LOCKED AND IN LOW POSITION. BILATERAL UPPER SIDE RAILS UP AND LOCKED. CALL LIGHT WITHIN EASY REACH
[2018-04-06] MEDS: methylPREDNISolone SOD SUCC 40 MG/ML VIAL IV SCH (08:11)
[2018-04-06] MEDS: LISINOPRIL (10MG) 10 MG TABLET PO SCH (08:12)
[2018-04-06] MEDS: PANTOPRAZOLE 40 MG VIAL IV SCH (08:12)
[2018-04-06] MEDS: ASPIRIN EC 81 MG TABLET.DR PO SCH (08:13)
[2018-04-06] MEDS: FUROSEMIDE 40 MG TABLET PO SCH (08:13)
[2018-04-06] MEDS: SPIRONOLACTONE 25 MG TABLET PO SCH (08:13)
[2018-04-06 08:15] VITALS: BP 145/95
--- NOTE | 2018-04-06 10:27 | NUR ---
Social service consult requested by Dr. Danielle for referrals to drug treatment programs. Pt. is a 42 year old male who was admitted to [facility] for respiratory distress and Nstemi. SW met with pt. bedside. Pt. is alert and oriented x 4. Pt. was laying in his bed when SW met with pt. Pt. is cooperative with SW during the assessment. Pt. lives with a friend in [place]. 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 Pt. states he uses methamphetamines and last used five days ago. Pt. has been using methamphetamines for the past 5 years on and off and started increasing his usage within the last two years after his mother's . Pt. seems to have unresolved feelings towards his mom's and appears to be grieving. Pt. denies any suicidal and homicidal ideations. SW offered pt. referral to drug treatment programs and encourage pt. to attend one. Pt. replied, " I can stop if I want to." Pt. is in denial of his frequent drug use. Pt. gets teary eyed when speaking of his mother. Pt. states he uses drugs to numb his pain. SW again encouraged pt. to attend a treatment program and gave him the following referrals that pt. accepted: Alcohol and Drug Treatment Programs [facility] Substance Abuse Self-helpline ([facility]) Contact number . Call the hotline and the repeater operator will screen and link individual to an appropriate program. Must have Medi-sarah or be Med-sarah eligible. [facility] [id number] [facility]. [place] [id number] [facility] [address] [facility]. [place] [id number] [facility] Rehabilitation Program (Shinto based) [address] [place] [address] (Six months program and need to work for 8 hrs per day while in treatment) [facility] (No insurance required) [address] [place] [address] No other social service needs are requested at this time. SW is available, if needed. Pt's RN Saul was updated regarding SW assessing the pt. and giving him referrals.
--- NOTE | 2018-04-06 12:05 | NUR ---
MS RN NOTES PATIENT WITH ORDER FROM MD TO DISCHARGE HOME. ORDER NOTED AND CARRIED OUT. DISCHARGE INSTRUCTIONS AND EDUCATION GIVEN AND PATIENT VERBALIZED UNDERSTANDING. IV REMOVED WITH MINIMAL BLEEDING NOTED, PRESSURE DRESSING PLACED ON SITE. ALL BELONGINGS COMPLETE ON DISCHARGE, NO REPORT OF MISSING INVENTORY. NO SKIN BREAKDOWN NOTED. WRITTEN PRESCRIPTIONS FOR ASA, LISINOPRIL, SPIRONOLACTONE, LASIX GIVEN TO PATIENT. PATIENT LEFT UNIT AT 1200, LEFT AMBULATORY. REMINDED PATIENT TO FOLLOW-UP WITH PRIMARY PHYSICIAN WITHIN 1 WEEK AND VERBALIZED UNDERSTANDING. ACCOMPANIED BY NURSING STAFF TO PARKING LOT. LEFT BY PRIVATE CAR WITH FRIEND. LEFT IN STABLE CONDITION. BREATHING EVEN AND UNLABORED. NO PAIN OR DISCOMFORT. MD AWARE OF DISCHARGE.
[2018-04-06] MEDS ORDERED: ENOXAPARIN SODIUM 40 MG/0.4 ML DISP.SYRIN SQ SCH (21:00)
== END 2018-04-06 12:00 | disposition home or self-care (01) | DRG 190 ==
LOC: ER 00:03 → TELE 01:42 → MED 08:45 → MEDSG2 18:43
PROVIDERS: ADMIT Family Medicine; ATTEND Family Medicine
DX: I21.A1 Myocardial infarction type 2 (principal); N17.0 Acute kidney failure with tubular necrosis; I11.0 Hypertensive heart disease with heart failure; J44.9 Chronic obstructive pulmonary disease, unspecified; F17.200 Nicotine dependence, unspecified, uncomplicated; Z79.82 Long term (current) use of aspirin; Z91.19 Patient's noncompliance with other medical treatment and regimen; E78.5 Hyperlipidemia, unspecified; F15.10 Other stimulant abuse, uncomplicated; F40.240 Claustrophobia; I50.22 Chronic systolic (congestive) heart failure
CPT/HCPCS: 36415; 71045-TC; 80048-TC; 84484-TC; 85025-TC; 85730-TC; 87081-TC; C9113; G0378; J1650; J2920; J2930; J3475

== ENCOUNTER 2018-12-01 18:07 | Inpatient (IN) | payer MEDICAID, OTHER ==
[~2018-12-01] VITALS: Ht 170.2 cm; Wt 66.7 kg
[2018-12-01] MEDS ORDERED: ONDANSETRON HCL/PF 4 MG/2 ML VIAL ONE (18:42)
[2018-12-01] MEDS ORDERED: NITROGLYCERIN PACKET 1 GM PACKET ONE (18:42)
[2018-12-01] MEDS ORDERED: MORPHINE SULFATE INJ 4 MG/ML DISP.SYRIN ONE (18:42)
[2018-12-01] MEDS ORDERED: METOPROLOL TARTRATE 50 MG TABLET ONE (18:43)
[2018-12-01 18:50] LABS: BASOPHILS % (AUTO) 1.3 % (0.0-2.0); EOSINOPHILS % (AUTO) 2.8 % (0.0-6.0); HEMATOCRIT 43 % (39-51); HEMOGLOBIN 14.1 g/dL (13.5-17.5); MEAN CORPUSCULAR HGB CONC 33 g/dl (31.0-36.0); MEAN CORPUSCULAR VOLUME 88 fL (80-96); MONOCYTES % (AUTO) 4.6 % (2.0-12.0); NEUTROPHILS % (AUTO) 76.3 % (43.0-81.0); PLATELET COUNT (AUTO) 261 /CMM (150-450); RED BLOOD CELL COUNT(AUTO) 4.87 MIL/uL (4.5-6.0); WHITE BLOOD COUNT (AUTO) 8.8 K/uL (4.3-11.0)
[2018-12-01 18:51] LABS: BASOPHILS # (AUTO) 0.1 /CMM (0.0-0.2); LYMPHOCYTES # (AUTO) 1.3 /CMM (0.8-4.8); MONOCYTES # (AUTO) 0.4 /CMM (0.1-1.30); NEUTROPHILS # (AUTO) 6.7 /CMM (1.8-8.9)
[2018-12-01 18:57] LABS: CALCIUM, SERUM 8.8 mg/dL (8.5-10.1); POTASSIUM 4.5 mmol/L (3.5-5.1)
--- NOTE | 2018-12-01 18:57 | NUR ---
"chest pain started this am worse now SOB". PT AAOX4, VSS. DENIES DIZZINESS, N/V, WEAKNESS @ THIS TIME. PLACED ON NEONATAL CRITICAL CARE NURSE, ST. PT SEEN & EVAL'D BY DR. GALLEGOS. MEDICATED ORDERED, PT GLADYS WELL. WILL CONT TO MONITOR.
[2018-12-01] MEDS ORDERED: METOPROLOL TARTRATE 25 MG TABLET PO ONE (19:00)
[2018-12-01] MEDS ORDERED: MORPHINE SULFATE INJ 2 MG/ML DISP.SYRIN IV ONE (19:00)
[2018-12-01] MEDS ORDERED: ONDANSETRON HCL/PF 4 MG/2 ML VIAL IVP ONE (19:00)
[2018-12-01] MEDS ORDERED: NITROGLYCERIN PACKET 1 GM PACKET TD ONE (19:00)
[2018-12-01] MEDS ORDERED: DIGO125T20 PO (19:15)
[2018-12-01] MEDS ORDERED: CARV6.252 PO (19:15)
[2018-12-01] MEDS ORDERED: ASPI-1152 PO (19:15)
[2018-12-01] MEDS ORDERED: FURO-144 PO (19:15)
--- NOTE | 2018-12-01 19:52 | NUR ---
PT RESTING EYES CLOSED BUT EASILY AWAKEN BY VERBAL STIMULI. PT STS MID CP 02/26 & GLADYS WELL. DENIES SOB, DIZZINESS, N/V, WEAKNESS @ THIS TIME. WILL CONT TO MONITOR.
[2018-12-01] MEDS ORDERED: FUROSEMIDE 20 MG/2 ML VIAL IV ONE (20:30)
[2018-12-01] MEDS ORDERED: FUROSEMIDE 20 MG/2 ML VIAL ONE (20:36)
[2018-12-01] MEDS ORDERED: ENOXAPARIN SODIUM 80 MG/0.8 ML DISP.SYRIN SQ ONE (20:45)
--- NOTE | 2018-12-01 21:01 | NUR ---
TELE 104
[2018-12-01] MEDS ORDERED: ACETAMINOPHEN 325 MG TABLET PO PRN (21:30)
[2018-12-01] MEDS: SPIRONOLACTONE 25 MG TABLET PO SCH (21:30)
[2018-12-01] MEDS ORDERED: ONDANSETRON HCL/PF 4 MG/2 ML VIAL IVP PRN (21:30)
[2018-12-01] MEDS ORDERED: ZOLPIDEM TARTRATE 5 MG TABLET PO PRN (21:30)
[2018-12-01] MEDS ORDERED: HYDROCODONE/APAP 5/325MG 1 EACH TABLET PO PRN (21:30)
[2018-12-01] MEDS ORDERED: Z GUARD REMEDY 2 OZ OINT TP PRN (21:30)
[2018-12-01] MEDS ORDERED: MAGNESIUM HYDROXIDE 30 ML UDC PO PRN (21:30)
--- NOTE | 2018-12-01 21:55 | NUR ---
REPORT GIVEN TO FERN NEGRON FOR ELLYN.
[2018-12-01] MEDS: ENOXAPARIN SODIUM 80 MG/0.8 ML DISP.SYRIN SQ SCH (22:00)
--- NOTE | 2018-12-01 22:30 | NUR ---
PT A&OX4, AMBULATORY, BREATHING EVEN AND REGULAR, SPEECH NORMAL, SKIN W/D/I, DENIES PAIN NOW. COMFORT & SAFETY PLACED, PT ON NURSING TECH.
[2018-12-02] MEDS: SPIRONOLACTONE 25 MG TABLET PO SCH (05:05)
[2018-12-02 06:23] LABS: APPEARANCE,URINE Clear (CLEAR); BILIRUBIN,URINE Negative (NEGATIVE); BLOOD, URINE Trace-lysed Ery/uL (NEGATIVE); COLOR,URINE Yellow (YELLOW); KETONES,URINE Negative (NEGATIVE); LEUKOCYTE ESTERASE ,URINE Negative (NEGATIVE); NITRITE, URINE Negative (NEGATIVE); PROTEIN,URINE 100 mg/dl (NEGATIVE); UGLUCOSE Negative (NEGATIVE); UROBILINOGEN,URINE 0.2 EU/dL (0.2)
--- NOTE | 2018-12-02 06:35 | NUR ---
PT AMBULATED TO BATHROOM, 150ML JAH CLEAR URINE OUT IN THE URINAL. SAMPLE COLLECTED AND WAITING FOR GLASSWARE VERIFIER, UNDERCOVER AGENT AWARE.
[2018-12-02 06:58] LABS: BACTERIA,URINE Few /HPF (None Seen); RBC,URINE 0-2 /HPF (0-2); SQUAMOUS EPITHELIAL CELL,UR Few /HPF (None Seen)
--- NOTE | 2018-12-02 07:25 | NUR ---
TELE/RN OPENING NOTES RECEIVED PATIENT IN BED SLEEPING COMFORTABLY. EASILY AROUSABLE. PATIENT IS ALERT AND ORIENTED X4. NO PAIN OR ACUTE DISTRESS AT THIS TIME. RESPIRATION EVEN AND UNLABORED. SKIN IS DRY WARM TO TOUCH. PATIENT ON TELE MONITORING AND ON SR AT THE MOMENT. HR OF 80S. PATIENT NOTED WITH IV ACCESS ON LEFT HAND. INTACT AND PATENT. FLUSHING WELL. NO S/S OF INFECTION OR INFILTRATION. ALL NEEDS ANTICIPATED. CALL LIGHT WITHIN REACHED. SAFETY MAINTAINED. BED LOCKED AND IN LOWEST POSITION. WILL CONTINUE TO MONITOR CLOSELY.
[2018-12-02 08:00] VITALS: BP 118/89
[2018-12-02] MEDS: LISINOPRIL (10MG) 10 MG TABLET PO SCH (08:43)
[2018-12-02] MEDS: ENOXAPARIN SODIUM 80 MG/0.8 ML DISP.SYRIN SQ SCH ×4 (08:45→20:49)
[2018-12-02] MEDS ORDERED: FUROSEMIDE 40 MG/4 ML VIAL IV SCH (09:00)
[2018-12-02] MEDS ORDERED: FUROSEMIDE 40 MG/4 ML VIAL IV ONE (09:00)
[2018-12-02] MEDS: FUROSEMIDE 100 MG/10 ML VIAL IV SCH ×3 (09:45→17:02)
--- NOTE | 2018-12-02 10:08 | NUR ---
TELE/RN NOTES CONFIRMED WITH DR. FERNANDES TO GIVE 80MG ON TOP OF THE PREVIOUSLY GIVEN 40MG OF LASIX. PATIENT CONTINUES TO REMAIN IN STABLE CONDITION. WILL CONTINUE TO MONITOR CLOSELY.
--- NOTE | 2018-12-02 15:30 | NUR ---
TELE/RN NOTES PATIENT CONTINUES TO REFUSE BLOOD DRAW FROM HEATER OPERATOR. PATIENT STATED " I DONT WANT TO DO IT TODAY. I WILL DO IT AGAIN TOMORROW". EXPLAINED RISK AND BENEFITS X3. STILL REFUSED. PATIENT CONTINUES TO REMAIN IN STABLE CONDITION. WILL CONTINUE TO MONITOR CLOSELY.
[2018-12-02 16:00] VITALS: BP_SYST 122; BP_SYST 124; BP_DIAS 68; BP_DIAS 77
[2018-12-02 16:01] LABS: CALCIUM, SERUM 8.7 mg/dL (8.5-10.1); CREATININE 1.3 mg/dL (0.6-1.3); MAGNESIUM 2.3 mg/dL (1.8-2.4); PHOSPHORUS 5.1 mg/dL (2.5-4.9); POTASSIUM 5.5 mmol/L (3.5-5.1)
--- NOTE | 2018-12-02 18:55 | NUR ---
MS/RN CLOSING NOTES PATIENT CONTINUES TO REMAIN IN STABLE CONDITION THROUGHOUT THE SHIFT. PROVIDED COMFORT AND SAFETY. CONTINUES ON DIURETICS. PATIENT NOTED WITH IV ACCESS ON LEFT HAND. INTACT AND PATENT. FLUSHING WELL. NO S/S OF INFECTION OR INFILTRATION. ALL NEEDS ANTICIPATED. CALL LIGHT WITHIN REACHED. SAFETY MAINTAINED. BED LOCKED AND IN LOWEST POSITION. WILL CONTINUE TO MONITOR CLOSELY. ENDORSED TO PM NURSE FOR ELLYN.
--- NOTE | 2018-12-02 19:05 | NUR ---
RN OPENING NOTES: PATIENT IN BED, AWAKE, AND VERBALLY RESPONSIVE. A&OX4. (L) HAND IV 20G INTACT AND PATENT. SALINE FLUSHED. NO C/O CHEST PAIN. NO RESPIRATORY DISTRESS. SAFETY PRECAUTIONS IMPLEMENTED. BED IN LOWEST POSITION. CALL LIGHT PLACED WITHIN REACH. WILL CONT. TO MONITOR.
[2018-12-02 20:00] VITALS: BP 126/84
--- NOTE | 2018-12-02 21:00 | NUR ---
RN NOTE: PATIENT REFUSED LOVENOX. RISKS AND BENEFITS EXPLAINED. PATIENT STILL REFUSED.
--- NOTE | 2018-12-02 21:30 | NUR ---
RN NOTE: PATIENT C/O 08/26 BOTH LEG PAIN AND CRAMPING. NORCO 5/325 MG GIVEN. WILL MONITOR FOR EFFECTIVENESS. Addendum: 12/03/18 at 0041 by MAME CASEY RN AT 0000, NOTIFIED BASILIA BURCH REGARDING PATIENT'S LEG PAIN AND CRAMPING POSSIBLY DUE TO K+ 5.5. RECOMMENDED TO PUT THE PATIENT BACK TO TELE. KIERSTEN CUI STATED NO AND LASIX GETS RID OF K+. PATIENT IS AMBULATING WELL AT THIS TIME. WILL CONT. TO MONITOR.
[2018-12-03 04:00] VITALS: BP 132/64
[2018-12-03 06:29] LABS: BASOPHILS # (AUTO) 0.1 /CMM (0.0-0.2); BASOPHILS % (AUTO) 0.7 % (0.0-2.0); EOSINOPHILS % (AUTO) 2.2 % (0.0-6.0); HEMATOCRIT 49 % (39-51); LYMPHOCYTES # (AUTO) 1.7 /CMM (0.8-4.8); LYMPHOCYTES % (AUTO) 20.4 % (20.0-44.0); MEAN CORPUSCULAR HGB CONC 33 g/dl (31.0-36.0); MEAN CORPUSCULAR VOLUME 87 fL (80-96); MONOCYTES # (AUTO) 0.8 /CMM (0.1-1.30); MONOCYTES % (AUTO) 9.9 % (2.0-12.0); NEUTROPHILS # (AUTO) 5.5 /CMM (1.8-8.9); NEUTROPHILS % (AUTO) 66.8 % (43.0-81.0); PLATELET COUNT (AUTO) 293 /CMM (150-450); RED BLOOD CELL COUNT(AUTO) 5.61 MIL/uL (4.5-6.0); WHITE BLOOD COUNT (AUTO) 8.3 K/uL (4.3-11.0)
[2018-12-03 06:32] LABS: ALBUMIN 2.8 g/dL (3.4-5.0); BILIRUBIN,TOTAL 1.9 mg/dL (0.2-1.0); CALCIUM, SERUM 8.5 mg/dL (8.5-10.1); CREATININE 1.3 mg/dL (0.6-1.3); MAGNESIUM 2.2 mg/dL (1.8-2.4); PHOSPHORUS 3.9 mg/dL (2.5-4.9); POTASSIUM 3.1 mmol/L (3.5-5.1); TOTAL PROTEIN, SERUM 7.5 g/dL (6.4-8.2)
--- NOTE | 2018-12-03 06:42 | NUR ---
RN NOTE: DAILY WEIGHT DONE. PREVIOUS WEIGHT 154 LBS WAS ONLY STATED BY PATIENT PER MADELYN ORTEGA. Addendum: 12/03/18 at 0644 by MAME CASEY RN Amended: Links added.
--- NOTE | 2018-12-03 07:05 | NUR ---
RN CLOSING NOTES: PATIENT IN BED, AWAKE, AND VERBALLY RESPONSIVE. NO SOB. NO CHEST PAIN. SAFETY MEASURES IMPLEMENTED. ENDORSED TO NEXT SHIFT NURSE FOR CONTINUITY OF CARE.
[2018-12-03] MEDS: ENOXAPARIN SODIUM 80 MG/0.8 ML DISP.SYRIN SQ SCH (08:39)
[2018-12-03 08:56] VITALS: BP 141/73
[2018-12-03] MEDS: SPIRONOLACTONE 25 MG TABLET PO SCH (08:56)
[2018-12-03] MEDS: LISINOPRIL (10MG) 10 MG TABLET PO SCH (08:56)
[2018-12-03] MEDS ORDERED: FUROSEMIDE 80 MG TABLET PO SCH (09:30)
[2018-12-03] MEDS: POTASSIUM CHLORIDE 20 MEQ TAB.PRT.SR PO SCH ×3 (10:00→11:18)
--- NOTE | 2018-12-03 10:23 | NUR ---
ms rn notes pt refused potassium tablet. states, "i cant take this big pill." offered to cut the pill in half, pt stated, "i dont want it." offered to ask the dr if he can get it in another form, pt refused all forms of potassium. discussed risks/benefits. pt insisted on not having it.
--- NOTE | 2018-12-03 11:50 | NUR ---
MS RN NOTES PT UPSET AND WANTS TO BE DISCHARGED NOW, STATES, "IM GETTING RESTLESS, I NEED TO LEAVE NOW OR I'M WALKING OUT." CALLED . ORDERED DISCHARGE AND TO CONTINUE HOME MEDS. PT PULLED OUT IV HIMSELF, NURSE APPLIED DRESSING. MINIMAL BLEED NOTED. PT'S BELONGINGS SIGNED FOR. PT LEFT WITHOUT SIGNING DISCHARGE INSTRUCTIONS. PT STATES, "I'M GOING HOME MY CAR IS IN THE PARKING LOT". PT TOOK ONE 20MEQ POTASSIUM TAB BEFORE LEAVING. CHARGE NURSE NOTIFIED.
== END 2018-12-03 11:33 | disposition home or self-care (01) | DRG 812 ==
LOC: ER 18:11 → TELE1 21:25 → MEDSG1 12-02 16:23
PROVIDERS: ADMIT Nurse Practitioner Acute Care; ATTEND Internal Medicine
DX: T43.621A Poisoning by amphetamines, accidental (unintentional), initial encounter (principal); I21.A1 Myocardial infarction type 2; J96.01 Acute respiratory failure with hypoxia; I11.0 Hypertensive heart disease with heart failure; I42.9 Cardiomyopathy, unspecified; E78.5 Hyperlipidemia, unspecified; I50.23 Acute on chronic systolic (congestive) heart failure; Z91.19 Patient's noncompliance with other medical treatment and regimen; J44.9 Chronic obstructive pulmonary disease, unspecified; Z72.0 Tobacco use; I25.2 Old myocardial infarction; F41.9 Anxiety disorder, unspecified; F40.240 Claustrophobia; F15.10 Other stimulant abuse, uncomplicated; Z79.82 Long term (current) use of aspirin; Z79.899 Other long term (current) drug therapy; Z91.14 Patient's other noncompliance with medication regimen; Z82.49 Family history of ischemic heart disease and other diseases of the circulatory system; Z95.810 Presence of automatic (implantable) cardiac defibrillator; I50.84 End stage heart failure; I42.7 Cardiomyopathy due to drug and external agent; Y92.009 Unspecified place in unspecified non-institutional (private) residence as the place of occurrence of the external cause
CPT/HCPCS: 36415; 71045-TC; 80048-TC; 80053-TC; 80061-TC; 80305; 81000-TC; 83735-TC; 83880; 84100-TC; 84484-TC; 85025-TC; 87081-TC; 93307-TC; G0378; J1650; J1940; J2270; J2405

== ENCOUNTER 2018-12-20 09:47 | Emergency (ER) | payer MEDICAID, OTHER ==
[~2018-12-20] VITALS: Ht 170.2 cm; Wt 72.6 kg
[~2018-12-20 09:47] MED LIST changes: +CARV6.252 PO; +DIGO125T20 PO; +FURO-144 PO; -FURO40TA5 PO; -LISI10TA59 PO; -SPIR25TA PO
[2018-12-20 10:13] LABS: BASOPHILS # (AUTO) 0.1 /CMM (0.0-0.2); EOSINOPHILS % (AUTO) 0.4 % (0.0-6.0); HEMATOCRIT 47 % (39-51); HEMOGLOBIN 15.2 g/dL (13.5-17.5); LYMPHOCYTES % (AUTO) 9.5 % (20.0-44.0); MEAN CORPUSCULAR HGB CONC 32 g/dl (31.0-36.0); MEAN CORPUSCULAR VOLUME 88 fL (80-96); MONOCYTES # (AUTO) 0.6 /CMM (0.1-1.30); NEUTROPHILS # (AUTO) 8.5 /CMM (1.8-8.9); NEUTROPHILS % (AUTO) 83.1 % (43.0-81.0); PLATELET COUNT (AUTO) 372 /CMM (150-450); RED BLOOD CELL COUNT(AUTO) 5.36 MIL/uL (4.5-6.0); WHITE BLOOD COUNT (AUTO) 10.2 K/uL (4.3-11.0)
--- NOTE | 2018-12-20 10:15 | NUR ---
PATIENT ARRIVED AT UNIT AMBULATORY. A/O X 4. WITH REPORT OF CHEST PRESSURE, SOB, COUGH x 2 DAYS. PATIENT CONNECTED TO MONITOR. WILL MONITOR ACCORDINGLY
[2018-12-20 10:33] LABS: CALCIUM, SERUM 9.6 mg/dL (8.5-10.1); CREATININE 1.1 mg/dL (0.6-1.3); POTASSIUM 4.9 mmol/L (3.5-5.1)
--- NOTE | 2018-12-20 10:44 | NUR ---
PT IS AGITATED. INSIST ON GETTING FOOD STATING, "I NEED FOOD, IM IRRITATED, IM NOT HAVING A HEART ATTACK." "IM WALKING AWAY. YOU GUYS ARE NOT HELPING ME." PT REFUSED TO SIGN AMA FORM.
--- NOTE | 2018-12-20 10:45 | NUR ---
PATIENT INSISTS ON LEAVING HOSPITAL AGAINST MEDICAL ADVICE. RISKS AND BENEFITS EXPLAINED BUT TO NO AVAIL. PATIENT STRONGLY REFUSED TO STAY. IV REMOVED, TIP INTACT, PRESSURE DRESSING PLACED ON SITE. ID BAND REMOVED. PATIENT REFUSED TO SIGN AMA FORM. LEFT ER AMBULATORY. DR BUSCH AWARE. CHARGE NURSE AWARE
[2018-12-20 10:55] VITALS: BP 142/88
== END 2018-12-20 10:56 | disposition left against medical advice (07) ==
LOC: ER 09:47
DX: R07.89 Other chest pain (principal); F41.9 Anxiety disorder, unspecified; I25.2 Old myocardial infarction; E78.5 Hyperlipidemia, unspecified; F15.10 Other stimulant abuse, uncomplicated; I11.0 Hypertensive heart disease with heart failure; I50.9 Heart failure, unspecified; F17.200 Nicotine dependence, unspecified, uncomplicated; Z79.82 Long term (current) use of aspirin; Z79.899 Other long term (current) drug therapy
CPT/HCPCS: 36415; 71045-TC; 80048-TC; 83880; 84484-TC; 85025-TC

== ENCOUNTER 2019-01-07 23:39 | Inpatient (IN) | payer MEDICAID, OTHER ==
[~2019-01-07] VITALS: Ht 170.2 cm; Wt 67.1 kg
--- NOTE | 2019-01-07 23:40 | NUR ---
"DARRIAN, PT STATES HIS DEFIBRILLATOR SHOCKED HIM 1X SHIPPING/RECEIVING MANAGER PT ALSO C/O COUGH" pt aaox4, -sob, nad noted, vss ,pending md saenz
[2019-01-07] MEDS ORDERED: LEVALBUTEROL HCL NEB 1.25 MG/0.5 ML VIAL.NEB ONE (23:51)
[2019-01-07 23:52] LABS: BASOPHILS # (AUTO) 0.1 /CMM (0.0-0.2); BASOPHILS % (AUTO) 1.1 % (0.0-2.0); HEMATOCRIT 44 % (39-51); HEMOGLOBIN 14.4 g/dL (13.5-17.5); LYMPHOCYTES # (AUTO) 1.7 /CMM (0.8-4.8); LYMPHOCYTES % (AUTO) 25.5 % (20.0-44.0); MEAN CORPUSCULAR HGB CONC 33 g/dl (31.0-36.0); MEAN CORPUSCULAR VOLUME 89 fL (80-96); MONOCYTES # (AUTO) 0.3 /CMM (0.1-1.30); MONOCYTES % (AUTO) 4.6 % (2.0-12.0); NEUTROPHILS # (AUTO) 4.4 /CMM (1.8-8.9); NEUTROPHILS % (AUTO) 65.8 % (43.0-81.0); PLATELET COUNT (AUTO) 262 /CMM (150-450); RED BLOOD CELL COUNT(AUTO) 4.98 MIL/uL (4.5-6.0); WHITE BLOOD COUNT (AUTO) 6.7 K/uL (4.3-11.0)
--- NOTE | 2019-01-07 23:52 | NUR ---
[facility] TO [facility] DEFIBRILLATOR. NEGIN CACERES (REP) BEING PAGED Addendum: 01/08/19 at 0030 by ISACC [phone]
[2019-01-08] MEDS ORDERED: ACETAMINOPHEN ES 500 MG TABLET ONE ×2 (00:29→00:31)
[2019-01-08 00:45] LABS: POTASSIUM 4.6 mmol/L (3.5-5.1)
[2019-01-08 00:46] LABS: CALCIUM, SERUM 9.2 mg/dL (8.5-10.1)
--- NOTE | 2019-01-08 00:56 | NUR ---
BED ASSIGNMENT 102
[2019-01-08] MEDS ORDERED: ASPIRIN 325 MG TABLET ONE (01:24)
--- NOTE | 2019-01-08 01:25 | NUR ---
REPORT GIVEN TO FERN NOE FOR ELLYN.
[2019-01-08] MEDS ORDERED: ALBUTEROL FS 2.5 MG/3 ML VIAL.NEB NEB PRN (01:30)
[2019-01-08] MEDS ORDERED: IPRATROPIUM NEB FS 0.5 MG/2.5 ML AMPUL.NEB NEB PRN (01:30)
[2019-01-08] MEDS ORDERED: ASPIRIN 325 MG TABLET PO SCH ×2 (01:30→09:00)
[2019-01-08] MEDS ORDERED: ACETAMINOPHEN ES 500 MG TABLET PO PRN (01:30)
[2019-01-08] MEDS ORDERED: LEVALBUTEROL HCL NEB 1.25 MG/0.5 ML VIAL.NEB NEB PRN ×2 (01:30)
--- NOTE | 2019-01-08 01:41 | NUR ---
PT TRANSPORTED TO UNIT ON [address] WITH EMT AND RN AT BEDSIDE W/ ACLS PROTOCOL. NAD NOTED DURING TRANSPORT. PT AMBULATED FROM GURNEY TO BED ON STEADY GAIT
[2019-01-08 02:00] VITALS: BP 142/106
--- NOTE | 2019-01-08 02:00 | NUR ---
SHEET METAL INSULATORCUSTOMER MARKETING MANAGER NOTES RECEIVED FROM ER THIS 43 YO MALE VIA GURREZA,VIA ACLS PROTOCOL,ACCOMPANIED BY RN JAMILA,ALERT,ORIENTED X4,AMBULATORY WITH STEADY GAIT,WITH CHIEF COMPLAINTS THAT HIS DEFIBRILLATOR SHOCKED HIM WHILE HAVING EPISODE OF COUGH.CHEST PAIN AT 2/10 ON PAIN SCALE.WITH KNOWN HISTORY OF PACEMAKER PLACEMENT SOMETIMES IN MAY AT [facility] UNDER DR KAMARA.NO SKIN ISSUES.TELEPHONE ORDERS GIVEN BY DR GONZÁLES.ORIENTED TO ROOM SET UP,CALL LIGHT IN REACH,NEEDS ANTICIPATED.
[2019-01-08 04:00] VITALS: BP 142/98
--- NOTE | 2019-01-08 05:00 | NUR ---
DITCHER OPERATOR NOTES PATIENT PULLED OUT HIS SALINE LOCK ON RIGHT AC,CLAIMED "ITS ANNOYING,I TOLD THEM (ER NURSE) NOT TO PUT ON THIS SITE"
--- NOTE | 2019-01-08 05:15 | NUR ---
DRYCLEANER NOTES OFFERED TO PUT NEW SALINE LOCK BUT HE WANTS TO REST FOR AWHILE.
[2019-01-08] MEDS ORDERED: LEVALBUTEROL HCL NEB 1.25 MG/0.5 ML VIAL.NEB ONE (05:57)
--- NOTE | 2019-01-08 05:58 | NUR ---
EXPLORATION MANAGER NOTES NEW SALINE LOCK PLACE ON LEFT FORE ARM #22,FLUSHED AND KEPT PATENT.
--- NOTE | 2019-01-08 05:59 | NUR ---
ASSEMBLY MACHINE TOOL SETTER NOTES HARD TO BREATH,RT ЮЛИЯ AT BEDSIDE TO ADMINISTER BREATHING TREATMENT ORDERED PRN.
--- NOTE | 2019-01-08 06:01 | NUR ---
CLOTHING SORTER NOTES HEADACHE IMPROVED,BREATHING TREATMENT EFFECTIVE,O2 IN USED AT 2L/NC TO KEEP O2 SAT ABOVE 90%.ALL NEEDS ATTENDED.INSTRUCTED BREAKFAST WILL BE HELD FOR A LITTLE WHILE TILL SEEN BY CARDIO DOCTOR.WILL ENDORSE TO DAY NURSE FOR ELLYN.
[2019-01-08 06:37] LABS: BASOPHILS % (AUTO) 0.7 % (0.0-2.0); EOSINOPHILS % (AUTO) 3.5 % (0.0-6.0); HEMATOCRIT 41 % (39-51); HEMOGLOBIN 13.4 g/dL (13.5-17.5); LYMPHOCYTES # (AUTO) 1.9 /CMM (0.8-4.8); LYMPHOCYTES % (AUTO) 29.8 % (20.0-44.0); MEAN CORPUSCULAR HGB CONC 33 g/dl (31.0-36.0); MEAN CORPUSCULAR VOLUME 87 fL (80-96); MONOCYTES # (AUTO) 0.3 /CMM (0.1-1.30); MONOCYTES % (AUTO) 4.7 % (2.0-12.0); NEUTROPHILS # (AUTO) 3.8 /CMM (1.8-8.9); NEUTROPHILS % (AUTO) 61.3 % (43.0-81.0); PLATELET COUNT (AUTO) 218 /CMM (150-450); RED BLOOD CELL COUNT(AUTO) 4.65 MIL/uL (4.5-6.0); WHITE BLOOD COUNT (AUTO) 6.3 K/uL (4.3-11.0)
--- NOTE | 2019-01-08 07:00 | NUR ---
TELE OPENING NOTE: RECEIVED PATIENT IN THE ROOM, WALKING AROUND WITH A STEADY GAIT. ALERT, AWAKE AND ORIENTED X4. AMBULATORY AND ABLE TO MAKE NEEDS KNOWN. ON ROOM AIR AND TOLERATING WELL, ON CARDIAC MONITORING WITH SINUS TACHYCARDIA NOTED AT 109BPM. NOT IN PAIN, NO DISTRESS NOTED. ORIENTED TO ROOM, CALL LIGHT LOCATION AND FUNCTION MADE KNOWN, BED LOCKED AND AT A LOW POSITION. BEHAVIOR OF TRYING TO GET OUT OF THE UNIT TO "GET SOME FRESH AIR" REPORTED BY THE OUTGOING NURSE. WILL MONITOR ON SHIFT.
[2019-01-08 07:12] LABS: CALCIUM, SERUM 8.5 mg/dL (8.5-10.1); CREATININE 1.2 mg/dL (0.6-1.3); POTASSIUM 3.8 mmol/L (3.5-5.1)
[2019-01-08] MEDS ORDERED: FLUT16SP16 BNOSTRILS (08:25)
[2019-01-08] MEDS ORDERED: SPIR25TA6 PO (08:25)
[2019-01-08] MEDS ORDERED: HYDR-3028 PO (08:25)
[2019-01-08] MEDS ORDERED: LISI10TA5 PO (08:25)
[2019-01-08] MEDS ORDERED: FERR-68 PO (08:25)
[2019-01-08] MEDS ORDERED: DIGOXIN 0.125 MG TABLET PO SCH (09:00)
[2019-01-08] MEDS ORDERED: CARVEDILOL 6.25 MG TABLET PO SCH (09:00)
[2019-01-08] MEDS ORDERED: FUROSEMIDE 40 MG TABLET PO SCH (09:00)
[2019-01-08 09:10] VITALS: BP 166/107
--- NOTE | 2019-01-08 09:58 | NUR ---
SUPPORT ASSISTANT NOTE: PATIENT LEFT AGAINST MEDICAL ADVICE/ELOPED. PATIENT WAS MISSING IN HIS ROOM AND HIS HEALTH COMMISSIONER HAS BEEN REMOVED. SECURITY WAS CALLED AND STAFF SEARCHED HOSPITAL PREMISES. THE PATIENT'S CAR WAS NO LONGER SEEN IN THE SPOT WHERE HE PARKED HIS CAR PREVIOUSLY. ROUNDING WAS MADE AT AROUND 0930 AND PATIENT WAS ON HIS BED SLEEPING COMFORTABLY AND EASILY AROUSABLE, NO IV LINE WAS PRESENT ANYMORE BECAUSE PATIENT HAD REMOVED IT HIMSELF AND REFUSED REINSERTION WHEN IT WAS OFFERED. PRIOR BEHAVIOR OF PATIENT "WANTING TO GO OUTSIDE TO GET SOME FRESH AIR" HAS BEEN NOTED BY PREVIOUS NIGHT NURSE AND EARLY THIS MORNING, IN BOTH INCIDENTS PATIENT WAS EDUCATED THAT WANDERING OUTSIDE THE UNIT IS NOT APPROPRIATE BECAUSE HE IS UNDER CARE AND HE SHOULD INFORM THE STAFF SO THAT HE CAN BE ACCOMPANIED APPROPRIATELY AND PATIENT VERBALIZED UNDERSTANDING. KADEN AGUIRRE NP MADE ROUNDS EARLIER TO THE PATIENT AND DISCUSSED THE TREATMENT PLAN AND WAS INFORMED OF THE PATIENT'S ELOPEMENT AND HE ACKNOWLEDGED.
== END 2019-01-08 09:43 | disposition left against medical advice (07) | DRG 194 ==
LOC: ER 23:44 → TELE1 01-08 01:06
PROVIDERS: ADMIT Nurse Practitioner Acute Care; ATTEND Nurse Practitioner Acute Care
DX: I11.0 Hypertensive heart disease with heart failure (principal); F15.20 Other stimulant dependence, uncomplicated; R07.89 Other chest pain; I50.33 Acute on chronic diastolic (congestive) heart failure; E78.5 Hyperlipidemia, unspecified; F17.210 Nicotine dependence, cigarettes, uncomplicated; J44.9 Chronic obstructive pulmonary disease, unspecified; Z59.0 Homelessness; Z95.810 Presence of automatic (implantable) cardiac defibrillator; F41.9 Anxiety disorder, unspecified
CPT/HCPCS: 36415; 71045-TC; 80048-TC; 80061-TC; 83735-TC; 83880; 84484-TC; 85025-TC; 87081-TC; G0378

== ENCOUNTER 2019-01-24 20:13 | Inpatient (IN) | payer MEDICAID, OTHER ==
[~2019-01-24] VITALS: Ht 170.2 cm; Wt 65.8 kg
[~2019-01-24 20:13] MED LIST changes: +FERR-68 PO; +FLUT16SP16 BNOSTRILS; +HYDR-3028 PO; +LISI10TA5 PO; +SPIR25TA6 PO
--- NOTE | 2019-01-24 20:31 | NUR ---
BIBS. TO ER BED 9. AAOX4. SOB, GASPING W/ SHALLOW BREATHS. AMBULATORY. C/O SOB AND CHEST PRESSURE SINCE YESTERDAY. PT REPORTS STARTED YESTERDAY AFTERNOON. CHEST PRESURE RATED 7/10 RADIATES TO NECK. PT REPORTS THAT FEELING IS MORE WHEN HE IS LYING DOWN. PT IS ALSO NOTED W/ BILAT LOWER LEG EDEMA. PT POSTIONED UP RIGHT, PLACE ON O2 VIA NC AND PLACED ON MONITOR. MD WAS AT BEDSIDE FOR EVAL. ORDERS RECEIVED, NOTED AND CARRIED OUT. IV LINE OBTAINED ON THE RFA 18G. BLOOD DRAWN AND GIVEN TO PHYSICAL EDUCATION DEPARTMENT CHAIR AT BEDSIDE. EKG DONE BY EMT. WILL CONTINUE TO MONITOR
[2019-01-24 20:33] LABS: BASOPHILS # (AUTO) 0.1 /CMM (0.0-0.2); BASOPHILS % (AUTO) 1.1 % (0.0-2.0); EOSINOPHILS % (AUTO) 1.8 % (0.0-6.0); HEMATOCRIT 44 % (39-51); HEMOGLOBIN 14.2 g/dL (13.5-17.5); LYMPHOCYTES # (AUTO) 1.8 /CMM (0.8-4.8); LYMPHOCYTES % (AUTO) 26.4 % (20.0-44.0); MEAN CORPUSCULAR HGB CONC 32 g/dl (31.0-36.0); MEAN CORPUSCULAR VOLUME 88 fL (80-96); MONOCYTES # (AUTO) 0.4 /CMM (0.1-1.30); MONOCYTES % (AUTO) 5.4 % (2.0-12.0); NEUTROPHILS # (AUTO) 4.4 /CMM (1.8-8.9); NEUTROPHILS % (AUTO) 65.3 % (43.0-81.0); PLATELET COUNT (AUTO) 297 /CMM (150-450); RED BLOOD CELL COUNT(AUTO) 5.01 MIL/uL (4.5-6.0); WHITE BLOOD COUNT (AUTO) 6.8 K/uL (4.3-11.0)
[2019-01-24 20:42] LABS: CALCIUM, SERUM 9.1 mg/dL (8.5-10.1); CREATININE 1.2 mg/dL (0.6-1.3); POTASSIUM 4.6 mmol/L (3.5-5.1)
--- NOTE | 2019-01-24 21:14 | NUR ---
CALLED NURSING SUP FOR TELE BED.
[2019-01-24] MEDS ORDERED: FUROSEMIDE 40 MG/4 ML VIAL IV ONE (21:30)
[2019-01-24] MEDS ORDERED: FUROSEMIDE 40 MG/4 ML VIAL ONE (21:30)
[2019-01-24] MEDS ORDERED: NITROGLYCERIN 0.4 MG/TAB BOTTLE SL PRN (21:30)
[2019-01-24] MEDS ORDERED: ASPIRIN 325 MG TABLET ONE (21:30)
[2019-01-24] MEDS ORDERED: ASPIRIN 325 MG TABLET PO ONE (21:30)
[2019-01-24] MEDS ORDERED: FLUTICASONE PROPIONATE 16 GM BOTTLE NS PRN (22:00)
--- NOTE | 2019-01-24 22:25 | NUR ---
REPORT GIVEN TO FERN OROSCO FOR ELLYN.
--- NOTE | 2019-01-24 22:34 | NUR ---
PT TRANSPORTED TO UNIT ON [facility] WITH EMT AND RN AT BEDSIDE W/ ACLS PROTOCOL. NAD NOTED DURING TRANSPORT. PT AMBULTED AND TRANSFERED TO BED WITHOUT ASSIST ON STEADY GAIT.
--- NOTE | 2019-01-24 23:00 | NUR ---
SLOT FLOORMAN [id number] NOTES ADMITTED A 43 Y/O MALE, TRANSPORTED FROM ER, VIA GURNEY, ADMISSION PROCESS INITIATED, SKIN IS INTACT, PATIENT REFUSED A THOROUGH SKIN ASSESSMENT, PATIENT REFUSED TO WEAR HOSPITAL GOWN, ORIENTED PATIENT TO UNIT, THE USE OF CALL LIGHT. SAFETY MEASURES IN PLACE, ASPIRATION PRECAUTION EMPHASIZE, BED IN LOW LOCKED POSITION, PATIENT COMPLAINTS OF SLIGHT SHORTNESS OF BREATH WITH A LITTLE HEAVY ON HIS CHEST, VITAL SIGNS TAKEN AND RECORDED, TEMP97.7, HR112, RR20, SATING 100%, BP 140/98. ALL NEEDS ANTICIPATED, TELE MONITOR READS SINUS TACH 1O8.IV ACCESS OH HIS RIGHT FOREARM INTACT AND PATENT, ALL NEEDS ATTENDED WILL MONITOR ACCORDINGLY.
[2019-01-24] MEDS: ENOXAPARIN SODIUM 40 MG/0.4 ML DISP.SYRIN SQ SCH (23:53)
[2019-01-25] VITALS (7 sets, daily range): BP systolic 104–158; BP diastolic 53–112
--- NOTE | 2019-01-25 01:30 | NUR ---
RN NOTES PATIENT IS REQUESTING A SLEEPING PILL, MADE AWARE. INFORMED MARIELOS CERVANTES THAT PATIENT HAS NO ACUTE RESPIRATORY DISTRESS, BUT COMPLAINTS OF SLIGHT HEAVY FEELING ON HIS CHEST, SATING 98% ON ROOM AIR, BREATHING EVEN AND UNLABORED RR18, WILL NOT GIVE SLEEPING PILL AT THIS TIME,WILL REASSESS, LATER IN THE MORNING PER MITER CUTTER MARIELOS CERVANTES, WILL CONTINUE TO MONITOR.
[2019-01-25] MEDS ORDERED: hydrOXYzine PAMOATE 25 MG CAPSULE PO PRN (06:30)
[2019-01-25] MEDS ORDERED: hydrOXYzine PAMOATE 50 MG CAPSULE PO PRN (06:30)
--- NOTE | 2019-01-25 06:44 | NUR ---
RN NOTES ALL NEEDS ATTENDED AND MET ABLE TO REST AND SLEPT AT INTERVALS, NO SIGNS OF ACUTE RESPIRATORY DISTRESS NOTED, PATIENT VERBALIZES A LITTLE RELIEF FROM SHORTNESS OF BREATH AND HEAVY FEELING ON HIS CHEST. TELE READS 103 105, SAFETY MEASURES IN PLACE, WILL ENDORSE TO AM NURSE FOR CONTINUITY OF CARE.
[2019-01-25 06:49] LABS: BASOPHILS # (AUTO) 0.1 /CMM (0.0-0.2); BASOPHILS % (AUTO) 0.8 % (0.0-2.0); EOSINOPHILS % (AUTO) 2.4 % (0.0-6.0); HEMATOCRIT 42 % (39-51); HEMOGLOBIN 13.4 g/dL (13.5-17.5); LYMPHOCYTES # (AUTO) 1.8 /CMM (0.8-4.8); LYMPHOCYTES % (AUTO) 26.6 % (20.0-44.0); MEAN CORPUSCULAR HGB CONC 32 g/dl (31.0-36.0); MEAN CORPUSCULAR VOLUME 87 fL (80-96); MONOCYTES # (AUTO) 0.3 /CMM (0.1-1.30); NEUTROPHILS # (AUTO) 4.3 /CMM (1.8-8.9); NEUTROPHILS % (AUTO) 65.2 % (43.0-81.0); PLATELET COUNT (AUTO) 272 /CMM (150-450); RED BLOOD CELL COUNT(AUTO) 4.79 MIL/uL (4.5-6.0); WHITE BLOOD COUNT (AUTO) 6.6 K/uL (4.3-11.0)
[2019-01-25 06:52] LABS: ALBUMIN 3.1 g/dL (3.4-5.0); CALCIUM, SERUM 8.7 mg/dL (8.5-10.1); CREATININE 1.2 mg/dL (0.6-1.3); MAGNESIUM 2.1 mg/dL (1.8-2.4); PHOSPHORUS 4.1 mg/dL (2.5-4.9); POTASSIUM 4.2 mmol/L (3.5-5.1); TOTAL PROTEIN, SERUM 7.5 g/dL (6.4-8.2)
--- NOTE | 2019-01-25 07:00 | NUR ---
RN NOTES RECEIVED PT ON BED , A/Ox4, UP AND WALKING IN THE ROOM , ON RA, O2 SAT WNL, NO SOB NOTED, ON TELE ST HR IN 110'S , R FA IV SITE CLEAN, DRY AND INTACT, PT MELO ANY DISTRESS, CONTINUE TO MONITOR
[2019-01-25 07:15] LABS: THYROID STIMULATING HORMONE 2.205 uIU/mL (0.358-3.74)
[2019-01-25] MEDS: FUROSEMIDE 40 MG/4 ML VIAL IV SCH ×2 (08:14→16:55)
[2019-01-25] MEDS: CARVEDILOL 6.25 MG TABLET PO SCH ×2 (08:16→16:55)
[2019-01-25] MEDS ORDERED: FERROUS SULFATE (325 MG) 325 MG/TAB TABLET PO SCH (09:00)
[2019-01-25] MEDS ORDERED: LISINOPRIL (10MG) 10 MG TABLET PO SCH (09:00)
[2019-01-25] MEDS ORDERED: ASPIRIN EC 81 MG TABLET.DR PO SCH (09:00)
[2019-01-25] MEDS ORDERED: NICOTINE PATCH (14MG) 14 MG PATCH.TD24 TD SCH (09:00)
[2019-01-25] MEDS ORDERED: SPIRONOLACTONE 25 MG TABLET PO SCH (09:00)
[2019-01-25] MEDS ORDERED: DIGOXIN 0.125 MG TABLET PO SCH (13:00)
--- NOTE | 2019-01-25 13:00 | NUR ---
RN NOTES PT REFUSED TROPONIN LEVEL TO BE DRAWN . PT STATED HE WILL LET US DRAW IT LATER. EXPLAINED TO PT HOW IMPORTANT IS BLOOD DRAWING AT THIS TIME, PT STILL REFUSED .
--- NOTE | 2019-01-25 18:18 | NUR ---
RN NOTES PT AGREED TO TROPONIN LEVEL DRAWING ,LAB NOTIFED, VSS STABLE, NO SIGNIFICANT CHANGES NOTED ON THIS SHIFT, WILL ENDORSE TO FOAM RUBBER CURER NURSE FOR CONTINUITY OF CARE.
[2019-01-25 19:17] LABS: APPEARANCE,URINE CLEAR (CLEAR); BILIRUBIN,URINE NEGATIVE (NEGATIVE); BLOOD, URINE NEGATIVE Ery/uL (NEGATIVE); COLOR,URINE YELLOW (YELLOW); KETONES,URINE NEGATIVE (NEGATIVE); LEUKOCYTE ESTERASE ,URINE NEGATIVE (NEGATIVE); NITRITE, URINE NEGATIVE (NEGATIVE); PROTEIN,URINE NEGATIVE (NEGATIVE); UGLUCOSE NEGATIVE (NEGATIVE); UROBILINOGEN,URINE 0.2 EU/dL (0.2)
--- NOTE | 2019-01-25 19:30 | NUR ---
MS RN OPENING NOTE PATIENT RECEIVED IN BED ASLEEP WITH NO SIGNS OF ANY DISTRESS. PATIENT ON ROOM AIR WITH NO SOB. PATIENT WISHED TO BE NOT BE DISTURBED. NO ASSESSMENT WAS DONE WILL CONTINUE TO MONITOR.
[2019-01-25] MEDS: ENOXAPARIN SODIUM 40 MG/0.4 ML DISP.SYRIN SQ SCH (22:00)
--- NOTE | 2019-01-25 22:37 | NUR ---
MS RN NOTE PATIENT REFUSING LOVENOX SCHEDULED AT 1999. ADDRESSED THE IMPORTANCE OF ADMINISTRATION BUT PATIENT REFUSES SAYS IT HURTS AND IT LEAVES A BRUISE. PATIENT SAYS MAYBE THE NEXT ONE.
[2019-01-26 04:00] VITALS: BP 105/73
--- NOTE | 2019-01-26 07:26 | NUR ---
RN OPENING NOTES RECEIVED PATIENT RESTING IN BED COMFORTABLY, DENIES ANY PAIN OR DISCOMFORT AT THIS TIME. HE IS AOX4, VERBAL, AND AMBULATORY. HE IS ON RA, TOLERATING WELL, NO S/SX OF RESP DISTRESS OR SOB. CHEST RISES AND FALLS EVENLY, LUNGS SOUND CLEAR BILATERALLY. SKIN IS INTACT. HE IS ON CARDIAC DIET, TOLERATING WELL. RFA 18 G IS PATENT AND INTACT, AM LABS TO BE DRAWN AT A LATER TIME BECAUSE PT WAS ASLEEP AND REFUSED IN THE AM. SAFETY MEASURES HAVE BEEN IMPLEMENTED, CALL LIGHT IS WITHIN REACH, SIDE RAILS UP X2, BED IS IN LOWEST AND LOCKED POSITION, WILL CONTINUE TO MONITOR FOR ANY CHANGES.
--- NOTE | 2019-01-26 07:51 | NUR ---
MS RN CLOSING NOTE PATIENT IN BED WITH NO SIGN OF DISTRESS. SLEEPING AND ON ROOM AIR WITH NO SOB. NO COMPLICATIONS AT THE MOMENT. ENDORSED PATIENT TO MORNING SHIFT NURSE.
--- NOTE | 2019-01-26 08:35 | NUR ---
RN NOTES PATIENT HAS LEFT AMA. PT WAS NOTICEABLY RESTLESS AND ANXIOUS, WANTING TO LEAVE. PT WANTED TO LEAVE THE UNIT AND GO TO THE [employer] TO PURCHASE SNACKS, HOWEVER, I TOLD HIM THAT HE IS NOT ALLOWED TO LEAVE THE UNIT. EXPLAINED THE RISKS WITH LEAVING AMA BUT STILL LEFT. IV SITE WAS REMOVED, PATIENT HAS ALL BELONGINGS
--- NOTE | 2019-01-26 10:28 | NUR ---
Social Work Consult was ordered for patient's reported homelessness. Patient left against medical advice prior to this chief underwriter's arrival and per fernanda Zuleta RN he was in a hurry to leave. Patient refused to sign the homeless waiver and declined any [facility] referrals. He is very accustomed to navigating the streets and is familiar with resources.
== END 2019-01-26 08:45 | disposition left against medical advice (07) | DRG 194 ==
LOC: ER 20:17 → TELE1 22:20 → MEDSG1 01-25 11:32
PROVIDERS: ADMIT Registered Nurse; ATTEND Nurse Practitioner Acute Care
DX: I11.0 Hypertensive heart disease with heart failure (principal); I21.A1 Myocardial infarction type 2; I42.0 Dilated cardiomyopathy; E78.5 Hyperlipidemia, unspecified; I25.5 Ischemic cardiomyopathy; F15.10 Other stimulant abuse, uncomplicated; I25.2 Old myocardial infarction; J44.9 Chronic obstructive pulmonary disease, unspecified; F17.210 Nicotine dependence, cigarettes, uncomplicated; R00.0 Tachycardia, unspecified; Z95.810 Presence of automatic (implantable) cardiac defibrillator; Z59.0 Homelessness; Z91.19 Patient's noncompliance with other medical treatment and regimen; E44.1 Mild protein-calorie malnutrition; Z68.27 Body mass index [BMI] 27.0-27.9, adult; I50.23 Acute on chronic systolic (congestive) heart failure
CPT/HCPCS: 36415; 71045-TC; 80048-TC; 80053-TC; 80061-TC; 80162-TC; 80305; 81000-TC; 83735-TC; 83880; 84100-TC; 84443-TC; 84484-TC; 85025-TC; 87081-TC; G0378; J1650; J1940

== ENCOUNTER 2019-02-19 19:29 | Inpatient (IN) | payer MEDICAID, OTHER ==
[~2019-02-19] VITALS: Ht 170.2 cm; Wt 67.6 kg
[~2019-02-19 19:29] MED LIST changes: -HYDR-3028 PO; +HYDR50TA61 PO
--- NOTE | 2019-02-19 19:41 | NUR ---
PT CAME INTO THE ED C/O MIDSTERNAL CHEST PAIN SINCE YESTERDAY GOT WORSE AN HOUR AGO. PT STATES "IT'S LIKE AN ELEPHANT SITTING ON MY CHEST". NON RADIATING. NO ACUTE DISTRESS NOTED. DEFIBRILLATOR ON L CHEST NOTED. WILL CONTINUE TO MONITOR
--- NOTE | 2019-02-19 19:45 | NUR ---
PT CONNECTED TO MOTION PICTURE PHOTOGRAPHER. CONNECTED TO 2L OF O2. SAT 98% ROOM AIR 88%
--- NOTE | 2019-02-19 19:53 | NUR ---
HOB MACHINE OPERATOR AT BEDSIDE FOR BLOOD DRAW
[2019-02-19] MEDS ORDERED: NITROGLYCERIN 0.4 MG/TAB BOTTLE ONE (20:04)
[2019-02-19 20:07] LABS: BASOPHILS # (AUTO) 0.1 /CMM (0.0-0.2); BASOPHILS % (AUTO) 1.2 % (0.0-2.0); EOSINOPHILS % (AUTO) 3.2 % (0.0-6.0); HEMATOCRIT 44 % (39-51); HEMOGLOBIN 14.4 g/dL (13.5-17.5); LYMPHOCYTES # (AUTO) 1.1 /CMM (0.8-4.8); LYMPHOCYTES % (AUTO) 16.8 % (20.0-44.0); MEAN CORPUSCULAR HGB CONC 33 g/dl (31.0-36.0); MEAN CORPUSCULAR VOLUME 87 fL (80-96); MONOCYTES # (AUTO) 0.3 /CMM (0.1-1.30); NEUTROPHILS # (AUTO) 4.7 /CMM (1.8-8.9); NEUTROPHILS % (AUTO) 73.8 % (43.0-81.0); PLATELET COUNT (AUTO) 208 /CMM (150-450); RED BLOOD CELL COUNT(AUTO) 5.08 MIL/uL (4.5-6.0); WHITE BLOOD COUNT (AUTO) 6.4 K/uL (4.3-11.0)
[2019-02-19 20:15] LABS: CREATININE 1.3 mg/dL (0.6-1.3); POTASSIUM 4.2 mmol/L (3.5-5.1)
--- NOTE | 2019-02-19 20:15 | NUR ---
FIRST DOSE OF NITRO GIVEN 0.4 MG SL
[2019-02-19] MEDS ORDERED: ASPIRIN 81 MG TAB.CHEW ONE (20:16)
--- NOTE | 2019-02-19 20:20 | NUR ---
2ND DOSE OF NITRO GIVEN 0.4 MG SL
--- NOTE | 2019-02-19 20:26 | NUR ---
PT ENDORSES 0/10 CHEST PAIN. NITRO HELD. SEE VITAL SIGNS ASSESSMENT.
[2019-02-19] MEDS ORDERED: NITROGLYCERIN 0.4 MG/TAB BOTTLE SL ONE (20:30)
[2019-02-19] MEDS ORDERED: ASPIRIN 81 MG TAB.CHEW PO ONE (20:30)
[2019-02-19 20:31] LABS: ALBUMIN 3.3 g/dL (3.4-5.0); BILIRUBIN,DIRECT 0.4 mg/dL (0.0-0.2); BILIRUBIN,TOTAL 1.4 mg/dL (0.2-1.0); TOTAL PROTEIN, SERUM 7.4 g/dL (6.4-8.2)
--- NOTE | 2019-02-19 21:25 | NUR ---
GAVE MOVESHEET TO ADMITTING FOR INSUR AUTH
[2019-02-19] MEDS ORDERED: NITROGLYCERIN 0.4 MG/TAB BOTTLE SL PRN (22:30)
[2019-02-19] MEDS ORDERED: MORPHINE SULFATE INJ 2 MG/ML DISP.SYRIN IV PRN (22:30)
[2019-02-19] MEDS ORDERED: FLUTICASONE PROPIONATE 16 GM BOTTLE NS PRN (22:30)
--- NOTE | 2019-02-19 22:30 | NUR ---
REPORT GIVEN TO FERN ROMERO
[2019-02-19 23:40] VITALS: BP 121/86
--- NOTE | 2019-02-19 23:40 | NUR ---
BATTER MIXERSIX PACK LOADER OPERATOR NOTES RECEIVED REPORT FROM EDEN SHIRLEY FROM ER AT 2230. PATIENT ARRIVED TO THE UNIT IN STABLE CONDITION VIA GURNEY AT 2340 ACCOMPANIED BY TWO ER STAFF. PATIENT IS VERBALLY RESPONSIVE. A/O X4. PATIENT IS AMBULATORY. VITAL SIGNS STABLE - BP:121/86 HR: 95 RR: 20 TEMP: 98.2 SPO2: 98 ON ROOM AIR. TELEMONITOR READING SINUS RHYTHM. NO S/S OF ACUTE RESPIRATORY DISTRESS. PATIENT DENIES ANY SOB OR CHEST PAIN AT THIS TIME. BELONGINGS LIST COMPLETED AND SIGNED BY PATIENT. PATIENT UNABLE TO PROVIDE ACCURATE MED RECONCILIATION AT THIS TIME. IV ACCESS PRESENT ON RIGHT AC, SIZE 18, INTACT & PATENT, HEP LOCKED. BED LOCKED, LOW-BURROUGHS'S POSITION, SIDE RAILS X 2, CALL LIGHT WITHIN REACH. WILL CONTINUE TO MONITOR.
--- NOTE | 2019-02-19 23:50 | NUR ---
ORGAN ASSEMBLER NOTES MED RECONCILIATION COMPLETED AND NOTED BY .
[2019-02-20] VITALS: BP 121/86
[2019-02-20 04:00] VITALS: BP_SYST 117; BP_SYST 120; BP_DIAS 80; BP_DIAS 86
--- NOTE | 2019-02-20 07:25 | NUR ---
RAILROAD SIGNAL AND SWITCH OPERATOR CLOSING NOTES PATIENT SLEEPING IN BED, EASY TO AWAKEN. A/O X3. ON ROOM AIR. NO COMPLAINTS OF SOB OR CHEST PAIN AT THIS TIME. TELE MONITOR READING SINUS RHYTHM. IV PRESENT ON RIGHT AC, SIZE 18, INTACT & PATENT, SL. BED LOCKED, SUPINE POSITION, SIDE RAILS X2, CALL LIGHT WITHIN REACH. WILL ENDORSE TO DAY SHIFT NURSE TO FOLLOW PLAN OF CARE.
--- NOTE | 2019-02-20 07:45 | NUR ---
SUPERVISOR ESTIMATOR AND DRAFTER OPENING NOTES RECEIVED PT ON BED, A/OX, RESPONSIVE TO ALL STIMULI. RESPIRATION EVEN AND UNLABORED WITH NO ACUTE RESPIRATORY DISTRESS. ABD SOFT AND NON DISTENDED WITH ACTIVE BOWEL SOUNDS, WITH BRP. SKIN WARM TO TOUCH, DRY AND INTACT. DENIES PAIN. IV SITE AT RIGHT AC GAUGE 18, PATENT IN FLUSHING, NO S/SX ON INFILTRATION. TEL MONITOR SHOWS SR [address] AND BBB. PER REPORT FROM HEATHER SHIRLEY, DR FERNANDES SAW PATIENT WITH NEW ORDER DC TELEMETRY AND TRANSFER TO MED SURG. PT HOMELESS AND REFUSED SW CONSULT, PER PATIENT HE HAS BEEN HOMELESS FOR 10 YEARS AND BEEN LIVING IN HIS CAR. ALL CONCERNS ATTENDED. CALL LIGHT WITHIN REACH. WILL CONTINUE TO EVALUATE CARE
[2019-02-20 08:00] VITALS: BP 124/90
[2019-02-20 08:16] VITALS: BP 124/90
[2019-02-20] MEDS ORDERED: FUROSEMIDE 40 MG TABLET PO SCH (09:00)
[2019-02-20] MEDS ORDERED: SPIRONOLACTONE 25 MG TABLET PO SCH (09:00)
[2019-02-20] MEDS ORDERED: DIGOXIN 0.125 MG TABLET PO SCH (09:00)
[2019-02-20] MEDS ORDERED: ASPIRIN EC 81 MG TABLET.DR PO SCH (09:00)
[2019-02-20] MEDS ORDERED: FERROUS SULFATE (325 MG) 325 MG/TAB TABLET PO SCH (09:00)
[2019-02-20] MEDS ORDERED: LISINOPRIL (10MG) 10 MG TABLET PO SCH (09:00)
[2019-02-20] MEDS ORDERED: CARVEDILOL 6.25 MG TABLET PO SCH (09:00)
--- NOTE | 2019-02-20 12:19 | NUR ---
M/S ROTO ROOTER OPERATOR NOTES PT DISCHARGED, HE IS CURRENTLY HOMELESS LIVING IN A CAR FOR 10 YEARS, REFUSED CASE MANGER/DOUGH MOLDER FOR PLACEMENT. PT HAS FAMILY MEMBER AROUND TO BE VISITED STATED. PT A/O X4, RESPONSIVE TO ALL STIMULI. RESPIRATION EVEN AND UNLABORED WITH NO ACUTE RESPIRATORY DISTRESS, SATING 99% ROOM AIR. ABDOMEN SOFT AND NON DISTENDED WITH ACTIVE BOWEL SOUNDS, CONTINENT BOWEL AND BLADDER AND WITH BRP. SKIN WARM TO TOUCH, DRY AND INTACT WITH NO ASSESSED OPEN WOUNDS. PT DENIES PAIN AND DISCOMFORT. EXIT CARE PROVIDED AND VERBALLY UNDERSTOOD. IV REMOVED TOLERATED WELL. ID BAND TAKEN OFF. PATIENT LEFT IN SAFE AND MEDICALLY STABLE CONDITION ACCOMPANIED BY LUCITA JOSHI TO HIS CAR.
== END 2019-02-20 11:45 | disposition home or self-care (01) | DRG 190 ==
LOC: ER 19:29 → TELE 22:17 → MED 02-20 08:38
PROVIDERS: ADMIT Internal Medicine; ATTEND Nurse Practitioner Acute Care
DX: I21.A1 Myocardial infarction type 2 (principal); I50.23 Acute on chronic systolic (congestive) heart failure; I11.0 Hypertensive heart disease with heart failure; I42.0 Dilated cardiomyopathy; I25.2 Old myocardial infarction; F40.240 Claustrophobia; J44.9 Chronic obstructive pulmonary disease, unspecified; Z59.0 Homelessness; E78.5 Hyperlipidemia, unspecified; F15.90 Other stimulant use, unspecified, uncomplicated; Z72.0 Tobacco use; F41.9 Anxiety disorder, unspecified; Z95.810 Presence of automatic (implantable) cardiac defibrillator; Z82.49 Family history of ischemic heart disease and other diseases of the circulatory system; Z79.899 Other long term (current) drug therapy; Z79.82 Long term (current) use of aspirin; E78.00 Pure hypercholesterolemia, unspecified
CPT/HCPCS: 36415; 71045-TC; 80048-TC; 80076-TC; 83880; 84484-TC; 85025-TC; 85730-TC; 87081-TC; G0378

== ENCOUNTER 2019-03-03 01:22 | Emergency (ER) | payer OTHER ==
[~2019-03-03] VITALS: Ht 170.2 cm; Wt 68.0 kg
[~2019-03-03 01:22] MED LIST changes: -CARV6.252 PO
--- NOTE | 2019-03-03 01:40 | NUR ---
PT PRESENTED TO THE ER WITH A C/O PALPITATIONS. PT DENIES PAIN AT THIS TIME. PT WAS PLACED ON THE MONITOR AND CONTINUOUS PULSE OX.
[2019-03-03 02:10] LABS: CALCIUM, SERUM 9.2 mg/dL (8.5-10.1); CREATININE 1.1 mg/dL (0.6-1.3); POTASSIUM 4.8 mmol/L (3.5-5.1)
[2019-03-03 02:22] LABS: ALBUMIN 3.5 g/dL (3.4-5.0); BILIRUBIN,DIRECT 0.3 mg/dL (0.0-0.2); BILIRUBIN,TOTAL 1.6 mg/dL (0.2-1.0); TOTAL PROTEIN, SERUM 7.7 g/dL (6.4-8.2)
[2019-03-03 02:24] LABS: BASOPHILS # (AUTO) 0.1 /CMM (0.0-0.2); EOSINOPHILS % (AUTO) 3.4 % (0.0-6.0); HEMATOCRIT 48 % (39-51); HEMOGLOBIN 15.8 g/dL (13.5-17.5); LYMPHOCYTES # (AUTO) 1.8 /CMM (0.8-4.8); LYMPHOCYTES % (AUTO) 25.4 % (20.0-44.0); MEAN CORPUSCULAR HGB CONC 33 g/dl (31.0-36.0); MEAN CORPUSCULAR VOLUME 87 fL (80-96); MONOCYTES # (AUTO) 0.5 /CMM (0.1-1.30); MONOCYTES % (AUTO) 7.7 % (2.0-12.0); NEUTROPHILS # (AUTO) 4.4 /CMM (1.8-8.9); NEUTROPHILS % (AUTO) 62.5 % (43.0-81.0); PLATELET COUNT (AUTO) 244 /CMM (150-450); WHITE BLOOD COUNT (AUTO) 7.1 K/uL (4.3-11.0)
[2019-03-03] MEDS ORDERED: HYDROCODONE/APAP 5/325MG 1 EACH TABLET ONE (02:46)
--- NOTE | 2019-03-03 02:48 | NUR ---
PT IS STILL UNABLE TO GIVE A URINE SAMPLE. DR BUSCH INFORMED.
--- NOTE | 2019-03-03 02:51 | NUR ---
PT IS C/O A HEADACHE. PT DENIES PALPATATIONS AT THIS TIME.
[2019-03-03] MEDS ORDERED: HYDROCODONE/APAP 5/325MG 1 EACH TABLET PO ONE (03:00)
--- NOTE | 2019-03-03 03:02 | NUR ---
Patient discharged to home in stable condition. Written and verbal after care instructions given. Patient verbalizes understanding of instruction. PT WAS INSTRUCTED NOT TO DRIVE. PT STATED THAT HE WOULD HAVE A FRIEND COME TO THE ER AND DRIVE HIS CAR HOME. VSS
[2019-03-03 03:03] VITALS: BP 142/99
== END 2019-03-03 03:04 | disposition home or self-care (01) ==
LOC: ER 01:23
DX: R79.89 Other specified abnormal findings of blood chemistry (principal); R00.2 Palpitations; I11.0 Hypertensive heart disease with heart failure; I50.21 Acute systolic (congestive) heart failure; F17.200 Nicotine dependence, unspecified, uncomplicated; E78.5 Hyperlipidemia, unspecified; F15.10 Other stimulant abuse, uncomplicated; Z98.890 Other specified postprocedural states; Z79.82 Long term (current) use of aspirin; Z79.899 Other long term (current) drug therapy
CPT/HCPCS: 36415; 71045-TC; 80048-TC; 80076-TC; 83880; 84484-TC; 85025-TC

== ENCOUNTER 2019-04-12 18:34 | Inpatient (IN) | payer OTHER ==
[~2019-04-12] VITALS: Ht 170.2 cm; Wt 68.1 kg
--- NOTE | 2019-04-12 19:15 | NUR ---
PT BIBF C/O SOB X 2 DAYS, FEVER, CHILLS, MID STERNAL NON RADIATING CHEST PAIN 7/10. PT ON 2 LITERS O2 SATTING @ 100%. PT AAOX4, NO ACUTE DISTRESS NOTED. PT CONNECTED TO THE MONITOR AND POX. EKG AT BEDSIDE
[2019-04-12] MEDS ORDERED: IPRATROPIUM NEB FS 0.5 MG/2.5 ML AMPUL.NEB NEB ONE (19:30)
[2019-04-12] MEDS ORDERED: ALBUTEROL FS 2.5 MG/3 ML VIAL.NEB NEB ONE (19:30)
[2019-04-12 19:34] LABS: BASOPHILS # (AUTO) 0.1 /CMM (0.0-0.2); BASOPHILS % (AUTO) 1.1 % (0.0-2.0); HEMATOCRIT 47 % (39-51); HEMOGLOBIN 15.6 g/dL (13.5-17.5); LYMPHOCYTES # (AUTO) 0.9 /CMM (0.8-4.8); LYMPHOCYTES % (AUTO) 16.1 % (20.0-44.0); MEAN CORPUSCULAR HGB CONC 33 g/dl (31.0-36.0); MEAN CORPUSCULAR VOLUME 89 fL (80-96); MONOCYTES # (AUTO) 0.7 /CMM (0.1-1.30); MONOCYTES % (AUTO) 11.9 % (2.0-12.0); NEUTROPHILS # (AUTO) 3.9 /CMM (1.8-8.9); NEUTROPHILS % (AUTO) 67.9 % (43.0-81.0); PLATELET COUNT (AUTO) 231 /CMM (150-450); RED BLOOD CELL COUNT(AUTO) 5.29 MIL/uL (4.5-6.0); WHITE BLOOD COUNT (AUTO) 5.7 K/uL (4.3-11.0)
--- NOTE | 2019-04-12 19:36 | NUR ---
XRAY AT BEDSIDE
[2019-04-12 19:44] LABS: CALCIUM, SERUM 8.6 mg/dL (8.5-10.1); CREATININE 1.1 mg/dL (0.6-1.3); POTASSIUM 4.5 mmol/L (3.5-5.1)
[2019-04-12] MEDS ORDERED: ALBUTEROL FS 2.5 MG/3 ML VIAL.NEB ONE (19:48)
[2019-04-12] MEDS ORDERED: IPRATROPIUM NEB FS 0.5 MG/2.5 ML AMPUL.NEB ONE (19:48)
--- NOTE | 2019-04-12 19:52 | NUR ---
RT AT BEDSIDE
[2019-04-12 20:02] LABS: ALBUMIN 3.4 g/dL (3.4-5.0); BILIRUBIN,DIRECT 0.3 mg/dL (0.0-0.2); BILIRUBIN,TOTAL 1.8 mg/dL (0.2-1.0); TOTAL PROTEIN, SERUM 7.4 g/dL (6.4-8.2)
--- NOTE | 2019-04-12 20:19 | NUR ---
PT REFUSED TO GIVE URINE SAMPLE
[2019-04-12] MEDS ORDERED: FUROSEMIDE 40 MG/4 ML VIAL IV ONE (20:30)
[2019-04-12] MEDS ORDERED: FUROSEMIDE 40 MG/4 ML VIAL ONE (20:33)
--- NOTE | 2019-04-12 20:51 | NUR ---
PATEL HINES'S BROTHER
--- NOTE | 2019-04-12 21:01 | NUR ---
RAMILA GAVE NUMBER TO DR BENITEZ. IF ACCEPTS CALL [phone]
--- NOTE | 2019-04-12 22:06 | NUR ---
CALLED DR BENITEZ. KERRY KENNEY HAVING PEER TO PEER
--- NOTE | 2019-04-12 22:08 | NUR ---
DR BENITEZ DID NOT ACCEPT. WILL CALL [facility]
--- NOTE | 2019-04-12 22:12 | NUR ---
CALLED [employer]. BUSINESS SYSTEMS ANALYST WAS PAGED.
--- NOTE | 2019-04-12 22:46 | NUR ---
CALLED HOUSE SUP FOR TELE BED
--- NOTE | 2019-04-12 22:53 | NUR ---
ER MD SPOKE TO DR. RIZVI REGARDING PT ADMISSION. REPORT CALLED TENSIONING MACHINE OPERATOR AMY. WILL TRANSPORT PT VIA ACLS PROTOCOL.
--- NOTE | 2019-04-12 23:15 | NUR ---
DR. RIZVI AT BEDSIDE TO JONATHAN PT.
[2019-04-12] MEDS ORDERED: ALBUTEROL FS 2.5 MG/0.5 ML VIAL.NEB NEB PRN (23:30)
[2019-04-12] MEDS ORDERED: Z GUARD REMEDY 2 OZ OINT TP PRN (23:30)
[2019-04-12] MEDS ORDERED: MORPHINE SULFATE INJ 2 MG/ML DISP.SYRIN IV PRN (23:30)
[2019-04-12] MEDS ORDERED: HYDROCODONE/APAP 5/325MG 1 EACH TABLET PO PRN (23:30)
[2019-04-12] MEDS ORDERED: ZOLPIDEM TARTRATE 5 MG TABLET PO PRN (23:30)
[2019-04-12] MEDS ORDERED: MAG HYDROX/AL HYDROX/SIMETH 30 ML UDC PO PRN (23:30)
[2019-04-12] MEDS ORDERED: IPRATROPIUM NEB FS 0.5 MG/2.5 ML AMPUL.NEB NEB PRN (23:30)
[2019-04-12] MEDS ORDERED: MAGNESIUM HYDROXIDE 30 ML UDC PO PRN (23:30)
[2019-04-12] MEDS ORDERED: ACETAMINOPHEN 325 MG TABLET PO PRN (23:30)
[2019-04-12] MEDS ORDERED: ONDANSETRON HCL/PF 4 MG/2 ML VIAL IVP PRN (23:30)
--- NOTE | 2019-04-12 23:33 | NUR ---
PT TRANSFERRED TO 304- IN STABLE CONDITION
[2019-04-12 23:55] VITALS: BP 115/73
--- NOTE | 2019-04-13 | NUR ---
SHOE PULLER NOTES ATTACHED TO ELECTRICAL ASSEMBLY SUPERVISOR WITH SINUS TACHYCARDIA AT 114bpm AND ST ELEVATION. AICD ON LEFT UPPER CHEST. TYLENOL 650MG GIVEN BY MOUTH FOR BODY TEMP. OF 99.9, COOLING MEASURES PROVIDED. REFUSED TO REMOVE HIS PANTS AND SHIRT TO CHANGE FOR A GOWN. RISK AND BENEFITS EXPLAINED. WILL CONTINUE TO MONITOR.
--- NOTE | 2019-04-13 | NUR ---
COMMUNICATIONS ATTENDANTPAINT COATING MACHINE OPERATOR NOTES RECEIVED PATIENT FROM ER VIA GURNEY ACCOMPANIED BY ER STAFFS. ALERT AND ORIENTED X 3 AMBULATORY. VERBALLY RESPONSIVE BUT ABLE TO FOLLOW DIRECTIONS. BREATHING REGULAR AND UNLABORED ON ROOM AIR. RIGHT HAND G18 IV LINE INTACT AND PATENT, FLUSHING WELL WITH NO BLEEDING OR S/S OF INFILTRATION NOTED. BODY ASSESSMENT DONE, SKIN INTACT CLEAN AND DRY. BELONGINGS CHECKED BY VENEER TRIMMER. PATIENT DOESN'T HAVE AN ADVANCE DIRECTIVES OR POLST AND WISHES TO BE FULL CODE. BED LOW AND LOCKED ON SEMI FOWLERS POSITION. CALL LIGHT IN REACH. WILL CONTINUE TO MONITOR.
[2019-04-13 00:16] VITALS: BP 115/73
--- NOTE | 2019-04-13 06:20 | NUR ---
RAIL ENGINEER CLOSING NOTES PATIENT IN BED ALERT AND ORIENTED X 3 AMBULATORY. VERBALLY RESPONSIVE BUT ABLE TO FOLLOW DIRECTIONS. BREATHING REGULAR AND UNLABORED ON ROOM AIR. RIGHT HAND G18 IV LINE PATENT AND FLUSHING WELL. MAINTAINED ON CARDIAC MONITORING WITH SINUS TACHYCARDIA AT 112bpm WITH ST ELEVATION. NO COMPLAINTS OF PAIN/DISCOMFORT REPORTED AT THIS TIME. BED LOW AND LOCKED ON SEMI FOWLERS POSITION. CALL LIGHT IN REACH. WILL ENDORSE TO MORNING SHIFT FOR ELLYN.
[2019-04-13] MEDS ORDERED: PANTOPRAZOLE 40 MG TABLET.DR PO SCH (07:30)
--- NOTE | 2019-04-13 07:30 | NUR ---
ms rn received on bed, awake,alert,oriented x3,not in any form of distress, respirations even and unlabored,no sob noted. lungs are diminished,abdomen soft,positive bowel sounds,denies pain at this time at this time.
[2019-04-13 08:00] VITALS: BP 155/52
[2019-04-13] MEDS ORDERED: BUMETANIDE INJ 8 MG in IV NS 0.9% 48 ML IV ONE (09:00)
[2019-04-13] MEDS ORDERED: FUROSEMIDE 40 MG/4 ML VIAL IV SCH (09:00)
--- NOTE | 2019-04-13 09:00 | NUR ---
ms enamorado breakfast served due meds given,tolerated well.
--- NOTE | 2019-04-13 09:35 | NUR ---
ms fei was seen by mele clayton/orders made and carried out.
--- NOTE | 2019-04-13 10:53 | NUR ---
Social service consult requested by MD for homelessness. Per chart review and MD notes, pt is a 43-year-old male who was admitted to [facility] for CHF exacerbation. GENERAL OPERATIONS MANAGER met with the pt bedside. GENERAL OPERATIONS MANAGER introduced self and purpose of the visit. GENERAL OPERATIONS MANAGER is familiar with the pt from several past inpatient hospitalizations. Pt. is alert and oriented x 4. Pt's mood is congruent. Pt. was lying in his bed when GENERAL OPERATIONS MANAGER met with pt. Pt. is cooperative with GENERAL OPERATIONS MANAGER during the assessment. Pt. lives with a friend in [place] on [address] but is unable to provide an address. 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 However, pt's UDS is positive for methamphetamines. When asked about the positive UDS, pt states, " I don't know why it's positive?" Pt declined homeless longterm placement and homeless packet /drug program resources. Pt. denies any suicidal and homicidal ideations. GENERAL OPERATIONS MANAGER encouraged pt. to attend a drug treatment program, however, pt declined. Pt. appears to be in denial of his drug use. GENERAL OPERATIONS MANAGER provided pt with active listening and supportive counseling. GENERAL OPERATIONS MANAGER also encouraged pt to take his medications as prescribed since pt is non-compliant with his medications per MD. No other social service needs are requested at this time. GENERAL OPERATIONS MANAGER is available, if needed. Homeless patient waiver form was placed in pt's chart for pt. to sign upon discharge. GENERAL OPERATIONS MANAGER updated pt's FERN Nick and Med Surg 3 JEFF Tineo regarding pt's discharge plan.
[2019-04-13 13:44] LABS: BASOPHILS # (AUTO) 0.1 /CMM (0.0-0.2); BASOPHILS % (AUTO) 1.2 % (0.0-2.0); EOSINOPHILS % (AUTO) 2.7 % (0.0-6.0); HEMATOCRIT 52 % (39-51); HEMOGLOBIN 17.4 g/dL (13.5-17.5); LYMPHOCYTES # (AUTO) 1.4 /CMM (0.8-4.8); LYMPHOCYTES % (AUTO) 26.2 % (20.0-44.0); MEAN CORPUSCULAR HGB CONC 34 g/dl (31.0-36.0); MEAN CORPUSCULAR VOLUME 88 fL (80-96); MONOCYTES # (AUTO) 0.9 /CMM (0.1-1.30); MONOCYTES % (AUTO) 16.6 % (2.0-12.0); NEUTROPHILS # (AUTO) 2.8 /CMM (1.8-8.9); NEUTROPHILS % (AUTO) 53.3 % (43.0-81.0); PLATELET COUNT (AUTO) 218 /CMM (150-450); RED BLOOD CELL COUNT(AUTO) 5.91 MIL/uL (4.5-6.0); WHITE BLOOD COUNT (AUTO) 5.3 K/uL (4.3-11.0)
--- NOTE | 2019-04-13 14:00 | NUR ---
ms rn patient suddenly removed his iv amd wanted ama. explained to him the risk of going ama, but patient already up front and went out. kirsty torres notified.
[2019-04-13 14:12] LABS: CALCIUM, SERUM 9.4 mg/dL (8.5-10.1); CREATININE 1.2 mg/dL (0.6-1.3); MAGNESIUM 2.2 mg/dL (1.8-2.4); PHOSPHORUS 4.7 mg/dL (2.5-4.9); POTASSIUM 4.4 mmol/L (3.5-5.1)
[2019-04-13 14:13] LABS: THYROID STIMULATING HORMONE 0.711 uIU/mL (0.358-3.74)
[2019-04-13 14:19] LABS: NEUTROPHILS % (MANUAL) 60 (42-76)
[2019-04-13 14:20] LABS: EOSINOPHILS % (MANUAL) 2 % (0-4); LYMPHOCYTES % (MANUAL) 29 % (16-48); MONOCYTES % (MANUAL) 9 % (0-11.0)
[2019-04-13 16:00] VITALS: BP 148/54
== END 2019-04-13 14:00 | disposition left against medical advice (07) | DRG 812 ==
LOC: ER 18:35 → TELE 23:15 → MED 04-13 10:09
PROVIDERS: ADMIT Student in an Organized Health Care Education/Training Program; ATTEND Nurse Practitioner Acute Care
DX: T43.621A Poisoning by amphetamines, accidental (unintentional), initial encounter (principal); I21.A1 Myocardial infarction type 2; I50.23 Acute on chronic systolic (congestive) heart failure; I11.0 Hypertensive heart disease with heart failure; I27.20 Pulmonary hypertension, unspecified; I42.0 Dilated cardiomyopathy; J44.9 Chronic obstructive pulmonary disease, unspecified; Z59.0 Homelessness; E78.5 Hyperlipidemia, unspecified; F40.240 Claustrophobia; F15.10 Other stimulant abuse, uncomplicated; Z95.810 Presence of automatic (implantable) cardiac defibrillator; F41.9 Anxiety disorder, unspecified; Z91.14 Patient's other noncompliance with medication regimen; F17.210 Nicotine dependence, cigarettes, uncomplicated; Z71.6 Tobacco abuse counseling; Y92.89 Other specified places as the place of occurrence of the external cause
CPT/HCPCS: 36415; 71045-TC; 80048-TC; 80061-TC; 80076-TC; 80305; 83605-TC; 83735-TC; 83880; 84100-TC; 84443-TC; 84484-TC; 85025-TC; 85730-TC; 87040-TC; 87081-TC; A4216; G0378; J1940; J3490; J7050

== ENCOUNTER 2019-08-03 10:37 | Emergency (ER) | payer OTHER ==
[~2019-08-03] VITALS: Ht 170.2 cm; Wt 71.7 kg
[~2019-08-03 10:37] MED LIST changes: -SPIR25TA6 PO
[2019-08-03] MEDS ORDERED: ONDANSETRON HCL/PF 4 MG/2 ML VIAL ONE (10:58)
[2019-08-03] MEDS ORDERED: MORPHINE SULFATE INJ 4 MG/ML DISP.SYRIN ONE (10:58)
[2019-08-03] MEDS ORDERED: IV NS 0.9% 1,000 ML BAG IV ONE (11:00)
[2019-08-03] MEDS ORDERED: MORPHINE SULFATE INJ 2 MG/ML DISP.SYRIN IV ONE (11:00)
[2019-08-03] MEDS ORDERED: ONDANSETRON HCL/PF 4 MG/2 ML VIAL IVP ONE (11:00)
[2019-08-03 11:19] LABS: CALCIUM, SERUM 8.9 mg/dL (8.5-10.1); CREATININE 1.3 mg/dL (0.6-1.3); POTASSIUM 4.4 mmol/L (3.5-5.1)
[2019-08-03 11:20] LABS: BASOPHILS # (AUTO) 0.1 /CMM (0.0-0.2); BASOPHILS % (AUTO) 1.8 % (0.0-2.0); EOSINOPHILS % (AUTO) 9.5 % (0.0-6.0); HEMATOCRIT 44 % (39-51); HEMOGLOBIN 14.4 g/dL (13.5-17.5); LYMPHOCYTES # (AUTO) 1.6 /CMM (0.8-4.8); LYMPHOCYTES % (AUTO) 24.9 % (20.0-44.0); MEAN CORPUSCULAR HGB CONC 33 g/dl (31.0-36.0); MEAN CORPUSCULAR VOLUME 91 fL (80-96); MONOCYTES # (AUTO) 0.5 /CMM (0.1-1.30); MONOCYTES % (AUTO) 7.4 % (2.0-12.0); NEUTROPHILS # (AUTO) 3.7 /CMM (1.8-8.9); NEUTROPHILS % (AUTO) 56.4 % (43.0-81.0); PLATELET COUNT (AUTO) 249 /CMM (150-450); RED BLOOD CELL COUNT(AUTO) 4.79 MIL/uL (4.5-6.0); WHITE BLOOD COUNT (AUTO) 6.5 K/uL (4.3-11.0)
--- NOTE | 2019-08-03 11:20 | NUR ---
BIBS TO ER BED 6. AAOX4. NOT IN REPS DISTRESS. AMBUALTORY. CAME IN FOR BILAT FLANK PAIN X 3 DAYS. PER PT HER HAD KIDNEY STONES IN THE PAST AND IT FEELS THE SAME. PAIN IS 8/10 ACHING THROBBING. PT ALSO REPORTS NAUSEA. MD WAS AT THE BEDSIDE FOR EVAL. ORDERS RECEIVED NOTED AND CARRIED OUT.
[2019-08-03 11:25] LABS: ALBUMIN 3.6 g/dL (3.4-5.0); BILIRUBIN,DIRECT 0.4 mg/dL (0.0-0.2); BILIRUBIN,TOTAL 1.7 mg/dL (0.2-1.0); TOTAL PROTEIN, SERUM 7.6 g/dL (6.4-8.2)
[2019-08-03] MEDS ORDERED: IV NS 0.9% 500 ML BAG IV ONE (11:30)
[2019-08-03] MEDS ORDERED: IOHEXOL-300 100 ML VIAL IV ONE (11:47)
[2019-08-03] MEDS ORDERED: IV NS 0.9% 250 ML IV ONE (11:48)
--- NOTE | 2019-08-03 12:10 | NUR ---
BACK FROM CT
--- NOTE | 2019-08-03 12:59 | NUR ---
URINE COLLECTED AND SENT OT LAB
[2019-08-03 13:02] LABS: APPEARANCE,URINE Clear (CLEAR); BILIRUBIN,URINE Negative (NEGATIVE); BLOOD, URINE Trace-intact Ery/uL (NEGATIVE); COLOR,URINE Yellow (YELLOW); KETONES,URINE Negative (NEGATIVE); LEUKOCYTE ESTERASE ,URINE Negative (NEGATIVE); NITRITE, URINE Negative (NEGATIVE); PH,URINE 5.5 (5.0-8.0); PROTEIN,URINE 30 mg/dl (NEGATIVE); UGLUCOSE Negative (NEGATIVE); UROBILINOGEN,URINE 0.2 EU/dL (0.2)
[2019-08-03 13:08] LABS: BACTERIA,URINE None seen /HPF (None Seen); MUCUS,URINE Few /LPF (None Seen); SQUAMOUS EPITHELIAL CELL,UR Rare /HPF (None Seen); WBC,URINE 0-1 /HPF (0-3)
--- NOTE | 2019-08-03 13:32 | NUR ---
Patient discharged to home in stable condition. Written and verbal after care instructions given. Patient verbalizes understanding of instruction.IV removed. Catheter intact and site benign. Pressure and 4x4 applied to site. No bleeding noted. Pt ambulatory with a steady gait
[2019-08-03 13:34] VITALS: BP 142/92
== END 2019-08-03 13:45 | disposition home or self-care (01) ==
LOC: ER 10:40
DX: N20.0 Calculus of kidney (principal); I11.0 Hypertensive heart disease with heart failure; I50.9 Heart failure, unspecified; E78.5 Hyperlipidemia, unspecified; I25.2 Old myocardial infarction; F41.9 Anxiety disorder, unspecified; F17.200 Nicotine dependence, unspecified, uncomplicated; Z79.82 Long term (current) use of aspirin
CPT/HCPCS: 36415; 74177; 80048; 80076; 81001; 83690; 85025; 96374; 96375; 99285; J2270; J2405; J7040; J7050; Q9967; 81000-TC; J7030

== ENCOUNTER 2019-08-06 23:33 | Emergency (ER) | payer OTHER ==
[~2019-08-06] VITALS: Ht 170.2 cm; Wt 70.3 kg
--- NOTE | 2019-08-06 23:50 | NUR ---
PATIENT CAME TO ER BED 10 C/O "MY DEFIBRILLATOR HURTS". PATIENT STATES THAT HE HAS BEEN HAVING THIS 08/26 PAIN SINCE YESTERDAY. PATIENT HAS A DEFIBRILLATOR. HISTORY OF CARDIAC ARREST LAST YEAR. AAOX4. NO SOB. BREATHING EVENLY AND UNLABORED ON ROOM AIR. CONNECTED TO MONITOR.
--- NOTE | 2019-08-06 23:50 | NUR ---
Note undone in EDM - 08/07/19 at 0054 by LAURIE PATIENT CAME TO ER BED 10 C/O LEFT SIDED CHEST PAIN. PATIENT STATES THAT HE HAS BEEN HAVING THIS 7/10 PAIN SINCE YESTERDAY. PATIENT HAS A DEFIBRILLATOR. HISTORY OF CARDIAC ARREST LAST YEAR. AAOX4. NO SOB. BREATHING EVENLY AND UNLABORED ON ROOM AIR. CONNECTED TO MONITOR.
--- NOTE | 2019-08-06 23:55 | NUR ---
BLOOD COLLECTED AND SENT TO LAB. PATIENT IS CHANGED INTO A GOWN
[2019-08-07 00:01] LABS: BASOPHILS # (AUTO) 0.1 /CMM (0.0-0.2); BASOPHILS % (AUTO) 0.9 % (0.0-2.0); EOSINOPHILS % (AUTO) 12.3 % (0.0-6.0); HEMATOCRIT 45 % (39-51); LYMPHOCYTES # (AUTO) 2.1 /CMM (0.8-4.8); LYMPHOCYTES % (AUTO) 28.5 % (20.0-44.0); MEAN CORPUSCULAR HGB CONC 34 g/dl (31.0-36.0); MEAN CORPUSCULAR VOLUME 91 fL (80-96); MONOCYTES # (AUTO) 0.3 /CMM (0.1-1.30); MONOCYTES % (AUTO) 4.4 % (2.0-12.0); NEUTROPHILS # (AUTO) 3.9 /CMM (1.8-8.9); NEUTROPHILS % (AUTO) 53.9 % (43.0-81.0); PLATELET COUNT (AUTO) 305 /CMM (150-450); RED BLOOD CELL COUNT(AUTO) 4.93 MIL/uL (4.5-6.0); WHITE BLOOD COUNT (AUTO) 7.2 K/uL (4.3-11.0)
[2019-08-07 00:12] LABS: CALCIUM, SERUM 9.4 mg/dL (8.5-10.1); CREATININE 1.6 mg/dL (0.6-1.3); POTASSIUM 4.6 mmol/L (3.5-5.1)
[2019-08-07] MEDS ORDERED: ASPIRIN 325 MG TABLET PO ONE (00:30)
[2019-08-07] MEDS ORDERED: ASPIRIN 325 MG TABLET ONE (00:37)
--- NOTE | 2019-08-07 00:43 | NUR ---
DR. CHRISTY SPEAKING TO DR. FERNANDES
--- NOTE | 2019-08-07 01:30 | NUR ---
PER BENCH MANAGER OLI, VERBAL AUTH TO ADMIT PATIENT TO [facility]
--- NOTE | 2019-08-07 01:32 | NUR ---
CALLED NURSING SUP FOR BED
--- NOTE | 2019-08-07 01:35 | NUR ---
DR. CHRISTY SPEAKING WITH MARIELOS CERVANTES MANAGER ENGINE
[2019-08-07] MEDS ORDERED: NITROGLYCERIN 0.4 MG/TAB BOTTLE SL PRN (02:00)
[2019-08-07] MEDS ORDERED: KETOROLAC TROMETHAMINE INJ 30 MG/ML VIAL IV PRN (02:00)
[2019-08-07] MEDS ORDERED: HEPARIN INFUSION/D5W 500 ML IV PRN ×3 (02:00→04:45)
[2019-08-07] MEDS ORDERED: IV NS 0.9% 500 ML IV PRN (02:00)
[2019-08-07] MEDS ORDERED: DOCUSATE SODIUM 100 MG CAPSULE PO PRN (02:00)
[2019-08-07] MEDS ORDERED: MAG HYDROX/AL HYDROX/SIMETH 30 ML UDC PO PRN (02:00)
[2019-08-07] MEDS ORDERED: ACETAMINOPHEN 325 MG TABLET PO PRN (02:00)
[2019-08-07] MEDS ORDERED: HEPARIN SODIUM, PORCINE 5000 UNITS/1 ML VIAL IV ONE (02:00)
[2019-08-07] MEDS ORDERED: ONDANSETRON HCL/PF 4 MG/2 ML VIAL IVP PRN (02:00)
[2019-08-07] MEDS ORDERED: FLUTICASONE PROPIONATE 16 GM BOTTLE NS PRN (02:00)
[2019-08-07] MEDS ORDERED: HEPARIN SODIUM, PORCINE 5000 UNITS/1 ML VIAL ONE (02:30)
--- NOTE | 2019-08-07 02:30 | NUR ---
ADDENDUM: Intravenous End Time Documentation: Heparin Infusion (25,000/D5W 500 ml) start time: 0230 AM end time: 0358 am Heparin drip running at 21.66 cc per hour. The patient signed AMA - see Jaswant Espinoza's nursing notes.
[2019-08-07] MEDS ORDERED: HEPARIN INFUSION/D5W 500 ML IV ONE (02:39)
[2019-08-07 03:11] VITALS: BP 167/120
--- NOTE | 2019-08-07 03:23 | NUR ---
TRIED TO GIVE REPORT, STAFF STATES THAT NURSE IS IN ISOLATION ROOM WITH ANOTHER PATIENT.
[2019-08-07] MEDS ORDERED: hydrOXYzine 10 MG TABLET PO PRN (03:30)
--- NOTE | 2019-08-07 03:38 | NUR ---
REPORT GIVEN TO JERRELL SHIRLEY FOR ELLYN.
--- NOTE | 2019-08-07 03:54 | NUR ---
PATIENT STATES THAT HE IS AFRAID OF THE COVID PATIENTS NEAR HIS ROOM.
--- NOTE | 2019-08-07 03:57 | NUR ---
Patient does not wish to proceed with medical care recommended by Dr. Sutherland. Patient given information related to possible complications, up to and including , which could occur as a result of leaving the hospital at this time. Patient verbalizes understanding of risks involved due to leaving against medical advice. Patient has signed AMA form.
--- NOTE | 2019-08-07 03:58 | NUR ---
IV removed. Catheter intact and site benign. Pressure and 4x4 applied to site. No bleeding noted.
--- NOTE | 2019-08-07 03:58 | NUR ---
Kat negrete in ED - 08/07/19 at 0358 by LAURIE Patient discharged to home in stable condition. Written and verbal after care instructions given. Patient verbalizes understanding of instruction.
[2019-08-07] MEDS ORDERED: METOPROLOL TARTRATE 25 MG TABLET PO SCH (09:00)
[2019-08-07] MEDS ORDERED: FUROSEMIDE 40 MG TABLET PO SCH (09:00)
[2019-08-07] MEDS ORDERED: FERROUS SULFATE (325 MG) 325 MG/TAB TABLET PO SCH (09:00)
[2019-08-07] MEDS ORDERED: DIGOXIN 0.125 MG TABLET PO SCH (09:00)
[2019-08-07] MEDS ORDERED: LISINOPRIL (10MG) 10 MG TABLET PO SCH (09:00)
[2019-08-07] MEDS ORDERED: ASPIRIN 81 MG TAB.CHEW PO SCH (09:00)
[2019-08-07] MEDS ORDERED: SIMVASTATIN 20 MG TABLET PO SCH (22:00)
== END 2019-08-07 03:59 | disposition home or self-care (01) ==
LOC: ER 23:37 → TELE1 08-07 02:49 → UNDOADMIN 08-07 02:49 → UNDODISIN 08-07 04:35
DX: I21.4 Non-ST elevation (NSTEMI) myocardial infarction (principal); I11.0 Hypertensive heart disease with heart failure; I50.9 Heart failure, unspecified; E78.5 Hyperlipidemia, unspecified; R00.0 Tachycardia, unspecified; F15.10 Other stimulant abuse, uncomplicated; Z98.890 Other specified postprocedural states; Z79.82 Long term (current) use of aspirin; Z79.899 Other long term (current) drug therapy
CPT/HCPCS: 36415 ×2; 71045; 80048; 83735; 84484; 85025; 85730; 93005; 96365; 96376; 99291; J1644 ×2

== ENCOUNTER 2020-11-13 20:23 | Inpatient (IN) | payer OTHER ==
[~2020-11-13] VITALS: Ht 170.2 cm; Wt 66.7 kg
[~2020-11-13 20:23] MED LIST changes: -ASPI-1152 PO; +ASPI-1420 PO; +LISI10TA29 PO; -LISI10TA5 PO
[2020-11-13] MEDS ORDERED: diphenhydrAMINE HCL 50 MG/ML VIAL ONE (20:38)
[2020-11-13] MEDS ORDERED: LORAZEPAM INJ 2 MG/ML VIAL ONE (20:39)
[2020-11-13] MEDS ORDERED: LORAZEPAM INJ 2 MG/ML VIAL IV ONE (21:00)
[2020-11-13] MEDS ORDERED: diphenhydrAMINE HCL 50 MG/ML VIAL IV ONE (21:00)
[2020-11-13 21:11] LABS: BASOPHILS # (AUTO) 0.1 K/uL (0.0-0.2); BASOPHILS % (AUTO) 1.4 % (0.0-2.0); EOSINOPHILS % (AUTO) 5.6 % (0.0-6.0); HEMATOCRIT 50 % (39-51); HEMOGLOBIN 16.6 g/dL (13.5-17.5); LYMPHOCYTES # (AUTO) 1.8 K/uL (0.8-4.8); LYMPHOCYTES % (AUTO) 20.7 % (20.0-44.0); MEAN CORPUSCULAR HGB CONC 33 g/dl (31.0-36.0); MEAN CORPUSCULAR VOLUME 92 fL (80-96); MONOCYTES # (AUTO) 0.6 K/uL (0.1-1.30); MONOCYTES % (AUTO) 7.1 % (2.0-12.0); NEUTROPHILS # (AUTO) 5.7 K/uL (1.8-8.9); NEUTROPHILS % (AUTO) 65.2 % (43.0-81.0); PLATELET COUNT (AUTO) 306 K/uL (150-450); RED BLOOD CELL COUNT(AUTO) 5.38 MIL/uL (4.5-6.0); WHITE BLOOD COUNT (AUTO) 8.8 K/uL (4.3-11.0)
--- NOTE | 2020-11-13 21:12 | NUR ---
UNABLE TO PROVIDE URINE SAMPLE AT THIS TIME
[2020-11-13] MEDS ORDERED: TDAP [DIPH/PERTUSSIS/TET] 0.5 ML VIAL IM ONE ×3 (21:30→21:56)
[2020-11-13 21:38] LABS: CREATININE 1.2 mg/dL (0.6-1.3); POTASSIUM 4.5 mmol/L (3.5-5.1)
[2020-11-13 21:44] LABS: BILIRUBIN,DIRECT 0.4 mg/dL (0.0-0.2); BILIRUBIN,TOTAL 1.4 mg/dL (0.2-1.0); TOTAL PROTEIN, SERUM 8.6 g/dL (6.4-8.2)
[2020-11-13] MEDS ORDERED: ASPIRIN 325 MG TABLET PO ONE (22:00)
[2020-11-13] MEDS ORDERED: ASPIRIN 325 MG TABLET ONE (22:01)
--- NOTE | 2020-11-13 22:08 | NUR ---
XRAY AT BEDSIDE
[2020-11-13] MEDS ORDERED: PIPERACILLIN /TAZOBACTAM 3.375 G VIAL IV ONE (22:18)
[2020-11-13] MEDS ORDERED: FLUTICASONE PROPIONATE 16 GM BOTTLE NS PRN (22:30)
[2020-11-13] MEDS ORDERED: PIPERACILLIN /TAZOBACTAM 3.375 G in IV D5W 50 ML IV ONE (22:30)
--- NOTE | 2020-11-13 22:34 | NUR ---
COVID SWAB SENT TO LAB
[2020-11-13] MEDS ORDERED: MAGNESIUM HYDROXIDE 30 ML UDC PO PRN (23:00)
[2020-11-13] MEDS ORDERED: MORPHINE SULFATE INJ 2 MG/ML DISP.SYRIN IV PRN (23:00)
[2020-11-13] MEDS ORDERED: ACETAMINOPHEN 325 MG TABLET PO PRN (23:00)
[2020-11-13] MEDS ORDERED: Z GUARD REMEDY 2 OZ OINT TP PRN (23:00)
[2020-11-13] MEDS ORDERED: ZOLPIDEM TARTRATE 5 MG TABLET PO PRN (23:00)
[2020-11-13] MEDS ORDERED: MAG HYDROX/AL HYDROX/SIMETH 30 ML UDC PO PRN (23:00)
[2020-11-13] MEDS ORDERED: ONDANSETRON HCL/PF 4 MG/2 ML VIAL IVP PRN (23:00)
[2020-11-13] MEDS ORDERED: HYDROCODONE/APAP 10/325MG TABLET PO PRN (23:00)
[2020-11-14] MEDS ORDERED: hydrOXYzine PAMOATE 50 MG CAPSULE PO PRN (06:00)
[2020-11-14] MEDS ORDERED: CLINDAMYCIN IV RTU IN D5W 900 MG/50 ML PIGGYBACK IV SCH (06:00)
--- NOTE | 2020-11-14 07:13 | NUR ---
TELE 323-2
--- NOTE | 2020-11-14 07:14 | NUR ---
RECIEVED BED 323-2
--- NOTE | 2020-11-14 07:18 | NUR ---
ATTEMPTED TO CALL REPORT, NURSE WILL CALL BACK
--- NOTE | 2020-11-14 07:30 | NUR ---
PATIENT IS RESTING IN BED ER #4.REFUSED BREAKFAST NOW.AWATING FOR THE BED TO BE GET TRANSFERRED.
--- NOTE | 2020-11-14 07:35 | NUR ---
report given to Mary SHIRLEY for bhargavi.
--- NOTE | 2020-11-14 07:43 | NUR ---
wheeled patient via gurney accompanied by RN and emt in no distress. RN assigned to patient at bedside to assume care.
--- NOTE | 2020-11-14 08:00 | NUR ---
FLOOR RENOVATOR NOTES RECEIVED PT FROM [facility], PATIENT AWAKE, ALERT AND ORIENTED, NO COMPLAINT OF PAIN, NOT IN DISTRESS, ON ROOM AIR, ASSISTED TO BED, MADE COMFORTABLE, ROOM SET UP ORIENTATION PROVIDED, VERBALIZED UNDERSTANDING, ADMITTING ORDERS RECEIVED FROM MD, NEEDS ATTENDED, PLACED ON TELE MONITORING, VITALS TAKEN AND RECORDED.
[2020-11-14] MEDS ORDERED: LISINOPRIL (10MG) 10 MG TABLET PO SCH (09:00)
[2020-11-14] MEDS ORDERED: CLINDAMYCIN 900 MG in IV D5W 50 ML IV SCH (10:00)
[2020-11-14] MEDS: FERROUS SULFATE (325 MG) 325 MG/TAB TABLET PO SCH (10:07)
[2020-11-14] MEDS: ASPIRIN EC 81 MG TABLET.DR PO SCH (10:07)
[2020-11-14] MEDS: DIGOXIN 0.125 MG TABLET PO SCH (10:08)
[2020-11-14] MEDS: CLINDAMYCIN 600 MG in IV D5W 50 ML IV SCH ×2 (11:11→17:18)
[2020-11-14] MEDS: IV NS 0.9% 1,000 ML IV PRN (11:11)
[2020-11-14 16:00] VITALS: BP 102/78
--- NOTE | 2020-11-14 18:27 | NUR ---
FLY MAKER NOTES PT IN BED, ASKEEP, EASY TO AROUSE, ALERT AND ORIENTED, COMPLIANT WITH MEDS, TOLERATES CURRENT DIET, DENIES PAIN, NO SOB, ABLE TO AMBULATE TO THE BATHROOM WITH STEADY GAIT, REFUSING BLOOD DRAW, DR. RIZVI INFORMED, IV FLUIDS INFUSING WELL, PT SEEN BY DR. RIZVI AND DR. FERNANDES TODAY, CALL LIGHT WITHIN REACH, NEEDS ATTENDED.
[2020-11-14 20:29] VITALS: BP 98/74
--- NOTE | 2020-11-14 20:29 | NUR ---
SECURITY SYSTEM ANALYST OPENING NOTES RECEIVED PT IN BED, ASLEEP, AWAKENS VIA VERBAL STIMULI. ON RA AND TOLERATING WELL. NO SOB NOTED. NO S/SX OF RESPIRATORY DISTRESS NOTED. IV ACCESS IN R FA #20G RUNNING NORMAL SALINE @ 75 ML/HR. NO COMPLAINTS OF PAIN AT THIS TIME. TELE MONITOR DETECTS SINUS RHYTHM WITH BBB AND RATE AT 95. SAFETY PRECAUTIONS IN PLACE: BED IN LOWEST, LOCKED POSITION, BRAKES ON, SIDERAILS UPx2. CALL LIGHT AND TABLE WITHIN REACH. WILL CONTINUE TO MONITOR.
--- NOTE | 2020-11-14 22:59 | NUR ---
GOLF STARTER AND RANGER TRIED TO DRAW LABS BUT PT REFUSED. PT ALSO REFUSED TO HAVE LABS DRAWN EARLIER IN THE DAY. EDUCATED PT ON RISKS.
--- NOTE | 2020-11-14 23:31 | NUR ---
NIGHTSHIFT ACTUARIAL DIRECTOR ATTEMPTED TO DRAW LABS BUT PT REFUSED AGAIN.
[2020-11-15 00:01] VITALS: BP 109/77
[2020-11-15] MEDS: CLINDAMYCIN 600 MG in IV D5W 50 ML IV SCH ×2 (01:00→09:16)
--- NOTE | 2020-11-15 01:15 | NUR ---
INFORMED PT ABOUT TRANSFER AND PT REFUSES TO BE TRANSFERRED.
[2020-11-15] MEDS: IV NS 0.9% 1,000 ML IV PRN (03:00)
[2020-11-15 03:37] VITALS: BP 107/70
--- NOTE | 2020-11-15 06:34 | NUR ---
LENS GRINDING MACHINE OPERATOR CLOSING NOTES PT IN BED, ASLEEP, AWAKENS TO VERBAL STIMULI. AOx4. ABLE TO MAKE NEEDS KNOWN. ON RA AND TOLERATING WELL. NO SOB NOTED. NO S/SX OF RESPIRATORY DISTRESS NOTED. IV ACCESS IN R FA #20G RUNNING NORMAL SALINE @ 75 ML/HR. TELE MONITOR DETECTS SINUS RHYTHM WITH BBB AND RATE FROM 85 -95. NO COMPLAINTS OF PAIN THROUGHOUT SHIFT. ALL NEEDS MET. PT KEPT CLEAN AND DRY. SAFETY PRECAUTIONS IN PLACE: BED IN LOWEST, LOCKED POSITION, BRAKES ON, SIDERAILS UPx2. CALL LIGHT AND TABLE WITHIN REACH. WILL ENDORSE TO ONCOMING SHIFT.
[2020-11-15 06:37] LABS: BASOPHILS # (AUTO) 0.1 K/uL (0.0-0.2); BASOPHILS % (AUTO) 1.2 % (0.0-2.0); EOSINOPHILS % (AUTO) 7.1 % (0.0-6.0); HEMATOCRIT 50 % (39-51); HEMOGLOBIN 16.4 g/dL (13.5-17.5); LYMPHOCYTES # (AUTO) 1.5 K/uL (0.8-4.8); LYMPHOCYTES % (AUTO) 26.2 % (20.0-44.0); MEAN CORPUSCULAR HGB CONC 33 g/dl (31.0-36.0); MEAN CORPUSCULAR VOLUME 94 fL (80-96); MONOCYTES # (AUTO) 0.4 K/uL (0.1-1.30); MONOCYTES % (AUTO) 6.5 % (2.0-12.0); NEUTROPHILS # (AUTO) 3.4 K/uL (1.8-8.9); PLATELET COUNT (AUTO) 267 K/uL (150-450); RED BLOOD CELL COUNT(AUTO) 5.32 MIL/uL (4.5-6.0); WHITE BLOOD COUNT (AUTO) 5.8 K/uL (4.3-11.0)
[2020-11-15 07:09] LABS: CREATININE 1.3 mg/dL (0.6-1.3); MAGNESIUM 2.5 mg/dL (1.8-2.4); PHOSPHORUS 3.7 mg/dL (2.5-4.9)
[2020-11-15 07:12] LABS: POTASSIUM 6.2 mmol/L (3.5-5.1)
--- NOTE | 2020-11-15 07:42 | NUR ---
ACTIVITIES COORDINATOR OPENING NOTES RECEIVED PATIENT IN BED, ASLEEP. PATIENT ON ROOM AIR; BREATHING EVEN AND UNLABORED; NO SOB NOTED AT THIS TIME. NO S/S OF PAIN SUCH FACIAL GRIMACING, MOANING OR GUARDING NOTED. TELE MONITOR WITH A CURRENT READING OF SR WITH BBB AND PVC. IV ACCESS AT RFA G # 20 RUNNING NS @ 75 MLS/HR. SAFETY PRECAUTIONS IN PLACE; BED IN LOW POSITION AND LOCKED, RAILS UP X2, CALL LIGHT WITHIN REACH. WILL CONTINUE TO MONITOR PATIENT.
[2020-11-15] MEDS: FERROUS SULFATE (325 MG) 325 MG/TAB TABLET PO SCH (09:04)
[2020-11-15] MEDS: DIGOXIN 0.125 MG TABLET PO SCH (09:04)
[2020-11-15] MEDS: ASPIRIN EC 81 MG TABLET.DR PO SCH (09:04)
[2020-11-15] MEDS: SODIUM POLYSTYRENE SULFONATE 15 G/60 ML BOTTLE PO ONE ×2 (09:20→10:41)
--- NOTE | 2020-11-15 09:31 | NUR ---
COOK ENCHILADA NOTES PER MD ORDER 30 G KAYEXALATE ORDERED FOR POTASSIUM OF 6.2 PATIENT TRIED A SIP AND REFUSED REFUSED REMAINING MEDICATION. WILL NOTIFY MD.
[2020-11-15 10:24] LABS: ALBUMIN 3.3 g/dL (3.4-5.0); BILIRUBIN,DIRECT 0.4 mg/dL (0.0-0.2); BILIRUBIN,TOTAL 1.6 mg/dL (0.2-1.0); TOTAL PROTEIN, SERUM 7.7 g/dL (6.4-8.2)
--- NOTE | 2020-11-15 10:41 | NUR ---
CONVERTIBLE TOP INSTALLER NOTES MD AND CHARGE NURSE SPOKE TO THE PATIENT ONE MORE TIME REGARDING KAYEXALATE; HE SAID HE WILL TAKE IT. MEDICATION ADMINISTERED.
--- NOTE | 2020-11-15 11:10 | NUR ---
BESSEMER REGULATOR NOTES PATIENT DECIDED TO GO AMA. PATIENT DID NOT WANT TO WAIT UNTIL TOMORROW FOR NEW LAB RESULTS. SAID HE CAN PULL HIS IV OUT AND LEAVE. NOTIFIED. IV REMOVED. PATIENT SIGNED AMA AND LEFT.
== END 2020-11-15 11:04 | disposition left against medical advice (07) | DRG 115 ==
LOC: ER 20:24 → TRANSITION 11-14 05:19 → TELE 11-14 07:42
PROVIDERS: ADMIT Nurse Practitioner Acute Care; ATTEND Student in an Organized Health Care Education/Training Program
DX: K12.2 Cellulitis and abscess of mouth (principal); A35 Other tetanus; I21.4 Non-ST elevation (NSTEMI) myocardial infarction; I50.22 Chronic systolic (congestive) heart failure; I11.0 Hypertensive heart disease with heart failure; Z86.74 Personal history of sudden cardiac arrest; Z59.0 Homelessness; E78.5 Hyperlipidemia, unspecified; Z95.810 Presence of automatic (implantable) cardiac defibrillator; K05.6 Periodontal disease, unspecified; E87.5 Hyperkalemia; F17.210 Nicotine dependence, cigarettes, uncomplicated; J44.9 Chronic obstructive pulmonary disease, unspecified; Z71.6 Tobacco abuse counseling; F41.9 Anxiety disorder, unspecified; F15.188 Other stimulant abuse with other stimulant-induced disorder; I25.10 Atherosclerotic heart disease of native coronary artery without angina pectoris; Z20.822 Contact with and (suspected) exposure to COVID-19
CPT/HCPCS: 36415; 70486-TC; 71045-TC; 80048-TC; 80076-TC; 82962-TC; 83735-TC; 84100-TC; 84484-TC; 85025-TC; 87081-TC; 90715; 93307-TC; C9803; G0378; J1200; J2060; J2270; J2405; J2543; J3490; J7030; J7060

== ENCOUNTER 2021-01-20 21:52 | Inpatient (IN) | payer OTHER ==
[~2021-01-20] VITALS: Ht 167.6 cm; Wt 68.0 kg
--- NOTE | 2021-01-20 22:20 | NUR ---
PATIENT BIBSELF C/O DIFFICULTY BREATHING, WHEN LYING DOWN. PT STATED INCREASING EDEMA X 3 DAYS. PATIENT IS A/O X 4 RR EVEN AND UNLABORED, NO SOB NOTED, PATIENT CONNECTED TO CARDIAC AND POX MONITOR.
[2021-01-20] MEDS ORDERED: FUROSEMIDE 40 MG/4 ML VIAL ONE (23:26)
[2021-01-20] MEDS ORDERED: FUROSEMIDE 40 MG/4 ML VIAL IV ONE (23:30)
[2021-01-20 23:47] LABS: BASOPHILS # (AUTO) 0.1 K/uL (0.0-0.2); BASOPHILS % (AUTO) 1.2 % (0.0-2.0); EOSINOPHILS % (AUTO) 2.5 % (0.0-6.0); HEMATOCRIT 43 % (39-51); HEMOGLOBIN 14.1 g/dL (13.5-17.5); LYMPHOCYTES # (AUTO) 1.4 K/uL (0.8-4.8); LYMPHOCYTES % (AUTO) 22.8 % (20.0-44.0); MEAN CORPUSCULAR HGB CONC 33 g/dl (31.0-36.0); MEAN CORPUSCULAR VOLUME 95 fL (80-96); MONOCYTES # (AUTO) 0.5 K/uL (0.1-1.30); MONOCYTES % (AUTO) 7.8 % (2.0-12.0); NEUTROPHILS % (AUTO) 65.7 % (43.0-81.0); PLATELET COUNT (AUTO) 266 K/uL (150-450); RED BLOOD CELL COUNT(AUTO) 4.52 MIL/uL (4.5-6.0)
[2021-01-21 00:09] LABS: CALCIUM, SERUM 8.5 mg/dL (8.5-10.1); CREATININE 1.6 mg/dL (0.6-1.3); POTASSIUM 4.9 mmol/L (3.5-5.1)
[2021-01-21 00:22] LABS: ALBUMIN 3.1 g/dL (3.4-5.0); BILIRUBIN,DIRECT 0.6 mg/dL (0.0-0.2); TOTAL PROTEIN, SERUM 7.3 g/dL (6.4-8.2)
[2021-01-21] MEDS ORDERED: ENOXAPARIN SODIUM 60 MG/0.6 ML DISP.SYRIN SQ ONE (00:30)
[2021-01-21] MEDS ORDERED: ENOXAPARIN SODIUM 30 MG/0.3 ML DISP.SYRIN ONE (00:51)
[2021-01-21] MEDS ORDERED: ENOXAPARIN SODIUM 40 MG/0.4 ML DISP.SYRIN SQ ONE (00:51)
--- NOTE | 2021-01-21 01:05 | NUR ---
DR RIDDLE ON THE PHONE W/ DR CARMICHAEL
--- NOTE | 2021-01-21 01:20 | NUR ---
COVID SWAB COLLECTED AND SENT TO LAB
--- NOTE | 2021-01-21 01:22 | NUR ---
MRSA SWAB COLLECTED AND SENT TO LAB. PATIENT'S BELONGINGS LIST DONE.
[2021-01-21] MEDS ORDERED: FLUTICASONE PROPIONATE 16 GM BOTTLE NS PRN (01:30)
[2021-01-21] MEDS ORDERED: MORPHINE SULFATE INJ 2 MG/ML DISP.SYRIN IV PRN (01:30)
[2021-01-21] MEDS ORDERED: hydrALAZINE HCL IV 20 MG VIAL IV PRN (01:30)
[2021-01-21] MEDS ORDERED: ONDANSETRON HCL/PF 4 MG/2 ML VIAL IVP PRN (01:30)
[2021-01-21] MEDS ORDERED: LABETALOL 20 MG/4 ML VIAL IV PRN (01:30)
[2021-01-21] MEDS ORDERED: ACETAMINOPHEN 325 MG TABLET PO PRN (01:30)
--- NOTE | 2021-01-21 06:10 | NUR ---
Patient does not wish to proceed with medical care recommended by Butch Nevarez. Patient given information related to possible complications, up to and including , which could occur as a result of leaving the hospital at this time. Patient verbalizes understanding of risks involved due to leaving against medical advice. Patient has signed AMA form.
--- NOTE | 2021-01-21 06:11 | NUR ---
IV removed. Catheter intact and site benign. Pressure and 4x4 applied to site. No bleeding noted.
[2021-01-21 06:12] VITALS: BP 119/77
[2021-01-21] MEDS ORDERED: FERROUS SULFATE (325 MG) 325 MG/TAB TABLET PO SCH (09:00)
[2021-01-21] MEDS ORDERED: HEPARIN SODIUM, PORCINE 5000 UNITS/1 ML VIAL SQ SCH (09:00)
[2021-01-21] MEDS ORDERED: DIGOXIN 0.125 MG TABLET PO SCH (09:00)
[2021-01-21] MEDS ORDERED: FUROSEMIDE 40 MG/4 ML VIAL IV SCH (09:00)
[2021-01-21] MEDS ORDERED: ASPIRIN EC 81 MG TABLET.DR PO SCH (09:00)
[2021-01-21] MEDS ORDERED: LISINOPRIL (10MG) 10 MG TABLET PO SCH (09:00)
== END 2021-01-21 06:11 | disposition left against medical advice (07) | DRG 194 ==
LOC: ER 21:54 → TRANSITION 01-21 02:38
PROVIDERS: ADMIT Internal Medicine; ATTEND Nurse Practitioner Acute Care
DX: I11.0 Hypertensive heart disease with heart failure (principal); I21.A1 Myocardial infarction type 2; I27.20 Pulmonary hypertension, unspecified; E78.5 Hyperlipidemia, unspecified; Z20.822 Contact with and (suspected) exposure to COVID-19; I25.2 Old myocardial infarction; Z87.81 Personal history of (healed) traumatic fracture; Z87.891 Personal history of nicotine dependence; F40.240 Claustrophobia; F41.9 Anxiety disorder, unspecified; F15.10 Other stimulant abuse, uncomplicated; Z79.899 Other long term (current) drug therapy; Z79.82 Long term (current) use of aspirin; Z82.49 Family history of ischemic heart disease and other diseases of the circulatory system; I34.0 Nonrheumatic mitral (valve) insufficiency; I50.9 Heart failure, unspecified; I50.22 Chronic systolic (congestive) heart failure
CPT/HCPCS: 36415; 71045-TC; 80048-TC; 80076-TC; 83880; 84484-TC; 85025-TC; 85730-TC; C9803; G0378; J1644; J1650; J1940; J2270; J2405

== ENCOUNTER 2021-02-27 23:57 | Emergency (ER) | payer OTHER ==
[~2021-02-27] VITALS: Ht 170.2 cm; Wt 70.3 kg
--- NOTE | 2021-02-28 | NUR ---
[id number]. 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 90% ON RA PT A/OX4. CONNECTED PT TO POX AND MONITOR.
--- NOTE | 2021-02-28 00:11 | NUR ---
LAC #20G S/L; PATENT AND INTACT. BLOOD COLLECTED AND SENT TO LAB
--- NOTE | 2021-02-28 00:45 | NUR ---
HELP DESK INTERN AT PT'S BEDSIDE
[2021-02-28 00:50] LABS: BASOPHILS % (AUTO) 1.3 % (0.0-2.0); EOSINOPHILS % (AUTO) 1.9 % (0.0-6.0); HEMATOCRIT 42 % (39-51); HEMOGLOBIN 13.9 g/dL (13.5-17.5); LYMPHOCYTES % (AUTO) 26.2 % (20.0-44.0); MEAN CORPUSCULAR HGB CONC 33 g/dl (31.0-36.0); MEAN CORPUSCULAR VOLUME 90 fL (80-96); MONOCYTES % (AUTO) 10.4 % (2.0-12.0); NEUTROPHILS % (AUTO) 60.2 % (43.0-81.0); PLATELET COUNT (AUTO) 252 K/uL (150-450); WHITE BLOOD COUNT (AUTO) 7.5 K/uL (4.3-11.0)
[2021-02-28 00:51] LABS: BASOPHILS # (AUTO) 0.1 K/uL (0.0-0.2); MONOCYTES # (AUTO) 0.8 K/uL (0.1-1.30); NEUTROPHILS # (AUTO) 4.5 K/uL (1.8-8.9)
[2021-02-28 00:57] LABS: CALCIUM, SERUM 8.8 mg/dL (8.5-10.1); CREATININE 1.4 mg/dL (0.6-1.3); POTASSIUM 5.3 mmol/L (3.5-5.1)
[2021-02-28] MEDS ORDERED: ASPIRIN 325 MG TABLET PO ONE (01:00)
[2021-02-28] MEDS ORDERED: NITROGLYCERIN 0.4 MG/TAB BOTTLE SL ONE (01:00)
--- NOTE | 2021-02-28 01:01 | NUR ---
DR CHRISTY ON THE PHONE W/ DR FERNANDES FOR CARDIAC CONSULT
--- NOTE | 2021-02-28 01:04 | NUR ---
FAXED FACESHEET AND EKG TO [facility]
[2021-02-28] MEDS ORDERED: ASPIRIN 325 MG TABLET ONE (01:05)
--- NOTE | 2021-02-28 01:06 | NUR ---
ON THE PHONE W/ [facility][H MAIN STEMI LINE [phone]
[2021-02-28 01:14] LABS: ALBUMIN 3.3 g/dL (3.4-5.0); BILIRUBIN,DIRECT 0.6 mg/dL (0.0-0.2); BILIRUBIN,TOTAL 1.7 mg/dL (0.2-1.0); TOTAL PROTEIN, SERUM 8.3 g/dL (6.4-8.2)
--- NOTE | 2021-02-28 01:29 | NUR ---
ON THE PHONE / [facility]
[2021-02-28] MEDS ORDERED: ALBUTEROL FS 2.5 MG/0.5 ML VIAL.NEB NEB ONE (01:30)
--- NOTE | 2021-02-28 01:30 | NUR ---
DR GUTHRIE ON THE PHONE W/ DR TRAMMELL FROM [facility]
--- NOTE | 2021-02-28 01:30 | NUR ---
FAXED EKG TO [facility] PER ER REQUEST
--- NOTE | 2021-02-28 01:33 | NUR ---
DR OLMOS FROM [facility] ON THE PHONE W/ DR CHRISTY
--- NOTE | 2021-02-28 01:36 | NUR ---
ACCEPTED BY DR OLMOS AT [facility]
[2021-02-28 01:37] VITALS: BP 112/65
--- NOTE | 2021-02-28 01:38 | NUR ---
REPORT GIVEN TO JENNY, CHARGE NURSE FOR REPORT.
--- NOTE | 2021-02-28 01:49 | NUR ---
911 AT BED SIDE TO [employer]ON[employer] INSPECTOR THE PT
--- NOTE | 2021-02-28 01:55 | NUR ---
TRANFERRED TO [facility] VIA [id number]
== END 2021-02-28 01:57 | disposition short-term general hospital (02) ==
LOC: ER 23:59
DX: I21.3 ST elevation (STEMI) myocardial infarction of unspecified site (principal); I11.0 Hypertensive heart disease with heart failure; I50.23 Acute on chronic systolic (congestive) heart failure; Z20.822 Contact with and (suspected) exposure to COVID-19; E87.1 Hypo-osmolality and hyponatremia; E87.5 Hyperkalemia; E78.5 Hyperlipidemia, unspecified; F15.10 Other stimulant abuse, uncomplicated; Z79.899 Other long term (current) drug therapy; Z95.810 Presence of automatic (implantable) cardiac defibrillator; Z79.82 Long term (current) use of aspirin
CPT/HCPCS: 36415; 71045; 80048; 80076; 83605; 83690; 83880; 84484; 85025; 85730; 87040 ×2; 87426; 93005; 99291; C9803; U0003